=== PATIENT | female | born 1960 | race Caucasian/White ===

== ENCOUNTER 2022-09-01 14:42 | Outpatient (REF) | payer MEDICARE, MEDICAID, SELFPAY ==
[2022-09-04 14:03] LABS: HPV mRNA E6/E7 rflx Not Detected (Not Detected)
== END 2022-09-01 14:43 | disposition home or self-care (01) ==
LOC: HO.LNP 14:42
PROVIDERS: Visit Provider Obstetrics & Gynecology
DX: Z01.419 Encounter for gynecological examination (general) (routine) without abnormal findings (principal); Z11.51 Encounter for screening for human papillomavirus (HPV); R10.9 Unspecified abdominal pain; Z71.89 Other specified counseling
CPT/HCPCS: 87624; 88142; 99212

== ENCOUNTER 2022-09-05 21:34 | Emergency (ER) | payer MEDICARE, MEDICAID, SELFPAY ==
--- NOTE | ~2022-09-05 | XR_ITS ---
EXAMINATION: XR FINGER, LEFT CLINICAL INFORMATION: Thumb pain, question fracture COMPARISON: None TECHNIQUE: Three views of the left thumb. FINDINGS: Osseous alignment is anatomic. No acute fracture is seen. There is spurring at the interphalangeal joint of the thumb. No significant focal soft tissue abnormality identified. XR/XR finger LT min 2V IMPRESSION: No evidence of fracture.
--- NOTE | ~2022-09-05 | XR_ITS ---
EXAMINATION: XR FINGER, RIGHT CLINICAL INFORMATION: Thumb pain, question fracture COMPARISON: None TECHNIQUE: Three views of the right thumb. FINDINGS: Osseous alignment is anatomic. No acute fracture is seen. There is degenerative change at the interphalangeal joint of the thumb. Minimal spurring is also noted at the MCP joint of the thumb. No significant focal soft tissue abnormality identified. XR/XR finger RT min 2V IMPRESSION: No fracture identified.
[2022-09-05 21:37] VITALS: BP 158/74; PULSE 88; RESP 20; TEMP 36.9; O2SAT 96; BMI 30.9
[2022-09-05 23:45] VITALS: BP 116/68; PULSE 96; RESP 16; TEMP 36.4; O2SAT 97
--- NOTE | 2022-09-06 01:07 | ED_ITS ---
HPI - Wound/Laceration General Chief Complaint: Wound/Laceration Stated Complaint: Thumb lac Time Seen by Provider: 09/06/22 00:50 Source: patient Mode of arrival: ambulatory Limitations: no limitations History of Present Illness HPI narrative: 62-year-old female presents with laceration to her left thumb. Patient states that she was reaching up in her cabinet, and a glass fell and shattered, cutting her thumb and thenar process. Patient states that it is painful to move. She also reports right thumb pain from an injury 4 days ago. She denies chest pain or pressure, palpitations, shortness of breath, intoxication, abdominal pain abdominal distention, dysuria hematuria, and loss of sensation. Onset (ago): hour(s) (Within the hour of arrival) Extremity Location: left: hand (thumb) Place: home Patient tetanus UTD: No Context: accidental Associated symptoms: pain and suspect foreign body present Treatments prior to arrival: bandage Related Data Home Medications Medication Instructions Recorded Confirmed alprazolam 1 mg tablet 1 mg PO TID PRN anxiety 09/01/22 escitalopram oxalate 20 mg tablet 20 mg PO DAILY 09/01/22 estradiol 0.5 mg tablet 0.5 mg PO DAILY 09/01/22 fentanyl 75 mcg/hr transdermal 0 patch topical 09/01/22 patch levothyroxine 150 mcg tablet 150 mcg PO DAILY 09/01/22 oxycodone 30 mg tablet 0 mg PO 09/01/22 Allergies Allergy/AdvReac Type Severity Reaction Status Date / Time minocycline Allergy Unknown Unknown Verified 09/01/22 14:09 Sulfa (Sulfonamide Allergy Unknown RASH Verified 09/01/22 14:09 Antibiotics) [SULFA (SULFONAMIDE ANTIBIOTICS)] tetracycline [TETRACYCLINE] Allergy Unknown PANCREATITI Verified 09/01/22 14:09 S Review of Systems Review of Systems: Constitutional: No Fever, No Chills ENT/Mouth: No Ear Pain, No Hoarseness, No sore throat Eyes: No Eye Pain, No Swelling, No Redness, No Foreign Body Cardiovascular: No Chest Pain, No SOB Respiratory: No Cough, No Dyspnea Gastrointestinal: No Nausea, No Vomiting, No Diarrhea, No abdominal Pain Genitourinary: No Dysuria, No Hematuria Musculoskeletal: positive bilateral thumb pain, No Myalgias, No Joint Swelling Skin: palmar aspect thumb laceration, No Skin lacerations, No rash Neuro: No Weakness, No Numbness, No Paresthesias, No Loss of Consciousness, No Dizziness, No Headache Psych: No Anxiety/Panic, No Depression Heme/Lymph: no easy bruising, no Lymphadenopathy Endocrine: No Polyuria, No Polydipsia Yes all other systems are reviewed and are negative [facility] Past Medical History Attestation statement: The following information was validated with the patient. Source: old records reviewed Medical History Hypothyroidism Well woman exam Surgical History H/O foot surgery H/O wrist surgery History of back surgery Hx of section Social History Social History Patient Tobacco Use Status: Current someday Tobacco user Advance Directives: No Physical Exam Vital Signs: Vital Signs: Last Vital Signs Temp 97.5 F 09/05/22 23:45 Pulse 96 09/05/22 23:45 Resp 16 09/05/22 23:45 BP 116/68 09/05/22 23:45 Pulse Ox 97 09/05/22 23:45 O2 Del Method 09/05/22 23:45 BMI result Body Mass Index 30.9 Appearance: Alert. Oriented X3. No acute distress. Eyes: Pupils equal, round and reactive to light. ENT: Pharynx normal. Neck: Normal inspection. Neck supple. CVS: Normal heart rate and rhythm. Pulses normal. Respiratory: No respiratory distress. Breath sounds normal. Abdomen: Soft and nontender. Skin: 1 cm laceration warm proximal phalanx of the left thumb. Flap laceration just below the MCP joint on the thenar process. Normal skin color. Normal skin turgor. Extremities: No lower extremity edema. Full range of motion to all digits. Brisk capillary refill. Neuro: No motor deficit. No sensory deficit. Cranial nerves 2-12 intact. Course Course Course Narrative: 62-year-old female presents with laceration across the proximal phalanx of the palmar aspect of the left thumb, with a flap laceration just below the MCP joint on the thenar process. Unknown when her last Tdap was updated, will do that today. Patient also complains of right thumb pain from an injury 4 days ago. Will order x-rays for both thumbs. Prepped and draped in sterile fashion. Irrigated with copious amounts of saline. Patient tolerated procedure well. Please refer to procedure note for full details. MDM - Wound/Laceration Differential Diagnosis Differential diagnosis: Likely laceration Medical Records Attestation: I reviewed the patient's medical records. Imaging Data Bilateral thumb x-rays: Attestation: I personally reviewed and interpreted this imaging study as follows: Radiologist's impression: EXAMINATION: XR FINGER, LEFT CLINICAL INFORMATION: Thumb pain, question fracture? COMPARISON: None? TECHNIQUE: Three views of the left thumb. FINDINGS: Osseous alignment is anatomic. No acute fracture is seen. There is spurring at the interphalangeal joint of the thumb. No significant focal soft tissue abnormality identified.? XR/XR finger LT min 2V IMPRESSION: No evidence of fracture. ? EXAMINATION: XR FINGER, RIGHT CLINICAL INFORMATION: Thumb pain, question fracture? COMPARISON: None? TECHNIQUE: Three views of the right thumb. FINDINGS: Osseous alignment is anatomic. No acute fracture is seen. There is degenerative change at the interphalangeal joint of the thumb. Minimal spurring is also noted at the MCP joint of the thumb. No significant focal soft tissue abnormality identified.? XR/XR finger RT min 2V IMPRESSION: No fracture identified. Procedures Laceration Laceration 1: Site: hand Side (If applicable): left (Left thumb) Size (cm): 1 Description: linear Depth: simple, single layer Local Anesthetic: lidocaine 1% Amount of anesthesia used (mL): 3 Pre-repair: wound explored, irrigated extensively and deep structures intact Skin layer closed with: nylon Size (cm): 4-0 Number of sutures: 5 Technique: simple, interrupted Laceration 2: Site: hand Side (If applicable): left Size (cm): 0.2 Description: flap Depth: simple, single layer Local Anesthetic: lidocaine 1% Amount of anesthesia used (mL): 1 Pre-repair: wound explored, irrigated extensively and deep structures intact Skin layer closed with: nylon Size (cm): 4-0 Number of sutures: 1 Technique: simple, interrupted Discharge Plan Discharge Clinical Impression: Laceration Patient Disposition: Home, Self-Care Instructions: Care For Your Stitches (ED), Finger Laceration (ED) Additional Instructions: You were evaluated for some laceration. We placed 5 stitches to the thumb, and 1 stitch to the thenar process just below the MCP joint. Please return in 10-14 days to have sutures removed. We updated your Tdap vaccine today. Your x-rays are negative for acute findings requiring emergent intervention. You may consider following up with her primary care physician for further follow-up for bilateral thumb pain. Thank you for choosing this emergency department for evaluation. Please follow-up with primary care physician as needed. Return to the emergency department for any new, concerning, or worsening symptoms. Prescriptions: No Action levothyroxine 150 mcg tablet 150 mcg PO DAILY alprazolam 1 mg tablet 1 mg PO TID PRN (Reason: anxiety) oxycodone 30 mg tablet 0 mg PO fentanyl 75 mcg/hr patch 72 hour 0 patch topical escitalopram oxalate 20 mg tablet 20 mg PO DAILY estradiol 0.5 mg tablet 0.5 mg PO DAILY
[2022-09-06] MEDS: Diphth,Pertus(ACell),Tet Adult 0.5 ML SYRINGE IM (01:37)
[2022-09-06] MEDS: Lidocaine HCl 2 % MPF 5 ML VIAL INFILTRATI (02:17)
== END 2022-09-06 02:47 | disposition home or self-care (01) ==
PROVIDERS: Emergency Provider Emergency Medicine Emergency Medical Services
DX: S61.012A Laceration without foreign body of left thumb without damage to nail, initial encounter (principal); S61.412A Laceration without foreign body of left hand, initial encounter; S60.512A Abrasion of left hand, initial encounter; M79.642 Pain in left hand; W25.XXXA Contact with sharp glass, initial encounter; Y93.9 Activity, unspecified; Y92.9 Unspecified place or not applicable; Y99.9 Unspecified external cause status
CPT/HCPCS: 12042; 73140; 90471; 90715; 99282; 99284

== ENCOUNTER → 2022-09-23 09:25 | Outpatient (BNVA) | payer MEDICARE, MEDICAID, SELFPAY | PROVIDERS: Visit Provider Physician Assistant | DX: S66.812A Strain of other specified muscles, fascia and tendons at wrist and hand level, left hand, initial encounter (principal); X50.1XXA Overexertion from prolonged static or awkward postures, initial encounter; Y93.9 Activity, unspecified; Y92.9 Unspecified place or not applicable; Y99.8 Other external cause status | CPT/HCPCS: 99202 ==

== ENCOUNTER 2022-09-26 09:40 | Day surgery (SDC) | payer MEDICARE, MEDICAID, SELFPAY ==
[2022-09-26] VITALS (23 sets, daily range): BP systolic 95–110; BP diastolic 50–69; PULSE 56–75; RESP 14–16; TEMP 36.1–36.6; O2SAT 88–97; BMI 30.9
--- NOTE | 2022-09-26 12:24 | HO.ANESPROP2 ---
HPI - Anesthesia Eval Consult details Narrative: 62 F for left thumb flexor pollicis longus tendon repair PMFSH Active Problems Active Problems: All Active Problems (Updated 09/23/22 @ 11:24 by Chapito Shields PA-C) Rupture of flexor tendon of left hand (Acute) Counseling for hormone replacement therapy (Acute) Abdominal pain (Acute) Well woman exam (Acute) Past Medical History Medical History Hypothyroidism Well woman exam Functional capacity: independent ambulation Family History Family history of problems with anesthesia: No Surgical History Surgical History H/O foot surgery H/O wrist surgery History of back surgery Hx of section History of Problems with Anesthesia: No Social History Social History (Updated 09/23/22 @ 09:34 by JOVANY Valdez) Patient Tobacco Use Status: Never used Tobacco Use of substances other than those prescribed or required for medical reasons: No Are you DNR?: No Advance Directives: No Advance Directives Information Provided: Yes Current occupational status: disabled Current occupation: rt hand Meds Allergies Allergy/AdvReac Type Severity Reaction Status Date / Time minocycline Allergy Unknown Unknown Verified 09/23/22 09:32 Sulfa (Sulfonamide Allergy Unknown RASH Verified 09/23/22 09:32 Antibiotics) [SULFA (SULFONAMIDE ANTIBIOTICS)] tetracycline [TETRACYCLINE] Allergy Unknown PANCREATITI Verified 09/23/22 09:32 S Home Medications Medication Instructions Recorded Confirmed Last Taken Type alprazolam 1 mg tablet 1 mg PO TID PRN anxiety 09/01/22 09/26/22 09/26/22 History escitalopram oxalate 20 mg tablet 20 mg PO DAILY 09/01/22 09/26/22 Unknown History estradiol 0.5 mg tablet 0.5 mg PO DAILY 09/01/22 09/26/22 Unknown History fentanyl 75 mcg/hr transdermal 75 mcg topical 09/01/22 Unknown History patch levothyroxine 150 mcg tablet 150 mcg PO DAILY 09/01/22 09/26/22 Unknown History oxycodone 30 mg tablet 60 mg PO Q6H 09/01/22 09/26/22 Unknown History sumatriptan succinate 100 mg tablet 100 mg PO NEEDED headache 09/23/22 09/26/22 Unknown History Exam Exam Date and Time: September 26, 2022 1224 Height,Weight and Vital Signs: Height 5 ft 4 in Weight 81.647 kg Last Vital Signs Temp 97.9 F 09/26/22 10:21 Pulse 56 09/26/22 10:21 Resp 16 09/26/22 10:21 BP 110/69 09/26/22 10:21 Pulse Ox 93 09/26/22 10:21 O2 Del Method 09/26/22 10:21 Airway Mallampati Class: IV TM Dist: >3cm Neck ROM: Full Loose/Missing/Broken Teeth: Yes (Chipped teeth ) Heart: S1,S2 Lungs: b/l breath sounds Assessment and Plan Assessment Anesthesia Assessment: Anesthesia Plan Discussed and Chart Reviewed Final Anesthetic Review Family History of Problems with Anesthesia: No History of Problems with Anesthesia: No NPO: Yes ASA Class: III Final Preanesthetic Review: Meds/Allgs Chart Reviewed, Consent Obtained/Reviewed and Anes Risks/Benef Reviewed Patient Risk: Intermediate Procedure Risk: Intermediate Anesthetic Plan Anesthetic Plan: GA Disposition: Standard PACU
--- NOTE | 2022-09-26 12:54 | MHC.SHP ---
Pre-Procedural Eval Section A Date of Service: 09/26/22 The patient is an INPATIENT: No Changes since office visit: No Cold of Flu in the past 2 weeks, No New Medical Problems, No Changes in Medication and No Patient answered all questions The History & Physical has been completed within 30 days and I have reviewed it.: Yes Section B Chief Complaint: FPL tendon rupture Allergies: Allergies Allergy/AdvReac Type Severity Reaction Status Date / Time minocycline Allergy Unknown Unknown Verified 09/23/22 09:32 Sulfa (Sulfonamide Allergy Unknown RASH Verified 09/23/22 09:32 Antibiotics) [SULFA (SULFONAMIDE ANTIBIOTICS)] tetracycline [TETRACYCLINE] Allergy Unknown PANCREATITI Verified 09/23/22 09:32 S Plan assessment and plan: 1. Left thumb FPL tendon laceration about 2-3 weeks post injury 2. Left thumb radial digital nerve laceration ulnar digital nerves sensation intact I have reviewed the history and physical and performed a pertinent physical examination on my patient. No changes have occurred unless specified.
--- NOTE | 2022-09-26 16:06 | W.PM.OPN ---
Operative Note Operative Note Date of Service: 09/26/22 Narrative: Operative Note Narrative: Preop diagnosis: left thumb proximal phalanx level FPL tendon laceration, 20 days post injury Postop diagnosis: Same Procedure: 1. left thumb flexor pollicis longus tendon repair 2. Left carpal tunnel release Surgeon: Shiloh Maza MD Anesthesia: General Anesthesia Findings: left thumb FPL tendon retrieved from carpal tunnel and advanced back into the FPL tendon sheath to the thumb. Radial digital nerve noted with partial injury and early evidence of healing/neuroma Implants: none Tourniquet time: 62 minutes EBL: 5.0 ml Specimen: none Drains: None Complications: None Disposition: Brought to the recovery room in stable condition Plan: Follow-up in 10-14 days for wound check, suture removal and placement in a short-arm thumb spica cast Until 5-6 weeks postop. Start OT hand therapy at 6 weeks postop No narcotics being given postop as patient is on 30 mg oxycodone tablet q.6 hours plus a fentanyl patch, and came in this morning difficult to arouse with dilated pupils. Pain will be managed by the person managing her pain medication. Indications: The patient is a 62 year old woman with a left thumb FPL tendon laceration and presumed laceration of the radial digital nerve to the thumb now 20 days post injury. . The risks and benefits of operative treatment, including but not limited to risk of damage to blood vessels, nerves, tendons, infection, recurrence, persistent pain or numbness, incomplete resolution of preoperative symptoms, or need for further surgery were discussed with the patient and they wished to proceed with surgery. Procedure: Once consent was obtained patient was brought back to the operating suite and placed in the operating table in a supine position. . Perioperative antibiotics and anesthesia was administered by the anesthesia team. A tourniquet was applied to the proximal aspect of the Left upper extremity and the limb was prepped and draped in a standard surgical fashion. The limb was elevated exsanguinated with Esmarch bandage and the tourniquet inflated to 250 mm of mercury for a total tourniquet time of 62 minutes. I made a Angelo incision over the volar aspect of the patient's left thumb including the rather transverse and healed laceration over the volar aspect of the proximal phalanx. Incision was made through the skin to the subcutaneous tissues using a 15. Blade. I then dissected down to the level of the flexor tendon sheath extending from the A1 tervor to just past the IP joint. The radial digital nerve was visualized in the wound with what appears to be a partial injury with healing and early neuroma formation. This was protected during the case. I made a longitudinal incision in the A1 trevor using a 15. Blade. The FPL tendon was not found in the flexor tendon sheath. I attempted carefully to grasp and withdraw the tendon from within the flexor tendon sheath. Being unable to do so I then elected to proceed with a carpal tunnel release. I made a 2.5 cm longitudinal incision directly over the patient's left carpal tunnel. Incision was made through the skin the subcutaneous tissues using a 15. Blade. I then extended the incision sharply through the palmaris fascia down to the level of the transverse carpal ligament. The transverse carpal ligament was then opened carefully 1st using a 15. Blade then using tenotomy scissors under direct visualization. Within the carpal tunnel I carefully retracted the median nerve ulnarly and was then able to appreciate the injured FPL tendon in the radial aspect of the carpal tunnel. This was dense withdrawn into the wound. I then placed a nylon suture on the end of the tendon and was able to draw it up through the flexor tendon sheath to the A1 trevor area. I was then able to draw the tendon up through the flexor tendon sheath to just past the oblique trevor. The distal and of the FPL tendon was noted at about the level of the IP joint. I then performed a 4 core primary repair of the FPL tendon using 3-0 Ethibond suture. At this point the tourniquet was deflated and hemostasis obtained with a brief period of local pressure and bipolar electrocautery. The wounds were copiously irrigated with normal saline. The skin edges were reapproximated with 5-0 nylon suture. The wound was infiltrated with some have% plain ropivacaine for postop pain control and a sterile dressing and dorsal blocking thumb spica splint were applied. The patient appears to have tolerated the procedure well and with no complications. All digits were well vascularized conclusion of the case.
--- NOTE | 2022-09-26 19:08 | PC.NURSE ---
HOSPITALIST DR. MAURER CALLED TO OBTAIN PATIENT UPDATE REGARDING RESPIRATORY STATUS. MADE AWARE OF HOME NARCOTIC MEDICAITONS TAKEN PREOPERATIVELY PRIOR TO ARRIVAL. PATIENT REMAINS ON SUPPLEMENTAL 02. C02 48-50. OTHERWISE VSS
--- NOTE | 2022-09-26 19:30 | P.HPHOSP_ITS ---
History of Present Illness Date of Service: 09/27/22 Chief Complaint: hypoxic This 62-year-old female with past medical history of chronic back pain, who is being seen in the hospital for elective outpatient repair of rupture of flexor tendon of left hand. Postop patient was noted to be hypoxic, and very lethargic and difficult to arouse. According to history prior to the surgery patient had taking 60 mg of her chronic oxycodone pain medication as well as Xanax. Or saw the patient few hours post surgery, she is awake, alert, satting 97% on 3 L of oxygen. According to the patient she sleeps very late in the morning hours and wakes up at 11 therefore she usually takes her chronic pain medication late in the morning, and she was told that she can take her regular medications prior to the surgery therefore she took her usual 60 mg of oxycodone and 1 pill of Xanax. Patient reports that she has been on the same dose of oxycodone since late . She reports no history of overdose, reports no new changes to her medications. She takes 60 mg of oxycodone q.4 hours. In regards to the tender rupture, she reports that she was reaching for a glass in the cabinet, where to glasses were stacked on top of each other, the bottom 1 fell, when she tried to reach for it, is shattered in her hand, rupturing her tendon in her left thumb. Currently the pain is 10/10, not control. Currently patient denies any chest pain, no shortness of breath, pain, no palpitations, nausea or vomiting, no diarrhea constipation, no urinary symptoms and no lower extremity edema. No headache or change in vision. No numbness weakness or tingling. Per recorded vitals, patient was found 85-90% on room air whenever oxygen is turned off Review of Systems Review of Systems: Yes all other systems are reviewed and are negative [facility] Medical History (Updated 09/27/22 @ 06:00 by Vero Almaraz MD) History of chronic pain Hypothyroidism Rupture of flexor tendon of left hand Well woman exam Functional capacity: independent ambulation Family History Other No family history of coronary artery disease Surgical History H/O foot surgery H/O wrist surgery History of back surgery Hx of section Social History Household Members: Friend(s) Housing: House Patient Tobacco Use Status: Never used Tobacco Use of substances other than those prescribed or required for medical reasons: No Currently Displaying Signs/Symptoms of Drug Intoxication Withdrawal: No Have you been hit, kicked, punched, or otherwise hurt by someone within the past year? If so, by whom?: No Do you feel safe in your current relationship?: Yes Is there a partner from a previous relationship who is making you feel unsafe now?: No Are you made to feel afraid or neglected: No Are you DNR?: No Advance Directives: No Advance Directives Information Provided: Yes Do you have thoughts of harming others: None Do you have a plan to hurt others: No Plan Recently lost weight without trying: No Nutrition Risks: No Nutritional Risk Patient : No : No Poor oral hygiene: No Current occupational status: disabled Current occupation: rt hand Meds Allergies Allergy/AdvReac Type Severity Reaction Status Date / Time minocycline Allergy Unknown Unknown Verified 09/23/22 09:32 Sulfa (Sulfonamide Allergy Unknown RASH Verified 09/23/22 09:32 Antibiotics) [SULFA (SULFONAMIDE ANTIBIOTICS)] tetracycline [TETRACYCLINE] Allergy Unknown PANCREATITI Verified 09/23/22 09:32 S Active Medications: Current Medications Acetaminophen (Acetaminophen 325 Mg Tablet) 650 mg PO ONCE PRN PRN Reason: Pain, Mild (Pain Scale 1-3) Acetaminophen (Acetaminophen 325 Mg Tablet) 650 mg PO Q6H PRN PRN Reason: Pain, Mild (Pain Scale 1-3) Enoxaparin Sodium (Enoxaparin Sodium 40 Mg/0.4 Ml Syringe) 40 mg SUBCUT Q24H LISSA Fentanyl (Fentanyl Citrate/Pf 100 Mcg/2 Ml Vial) 25 mcg IVPUSH Q5M PRN; Protocol PRN Reason: Pain, Moderate (Pain Scale 4-6 Promethazine HCl 6.25 mg/ (Sodium Chloride) 50.25 mls @ 201 mls/hr IV ONCE PRN PRN Reason: Nausea and Vomiting Ondansetron HCl (Ondansetron Hcl 4 Mg/2 Ml Vial) 4 mg IVPUSH Q8H PRN PRN Reason: Nausea and Vomiting Sodium Chloride (0.9 % Sodium Chloride Flush 3 Ml Syringe) [facility] Medications Medication Instructions Recorded Confirmed Last Taken Type alprazolam 1 mg tablet 1 mg PO TID PRN anxiety 09/01/22 09/26/22 09/26/22 History escitalopram oxalate 20 mg tablet 20 mg PO DAILY 09/01/22 09/26/22 Unknown History estradiol 0.5 mg tablet 0.5 mg PO DAILY 09/01/22 09/26/22 Unknown History fentanyl 75 mcg/hr transdermal 75 mcg topical 09/01/22 Unknown History patch levothyroxine 150 mcg tablet 150 mcg PO DAILY 09/01/22 09/26/22 Unknown History oxycodone 30 mg tablet 60 mg PO Q6H 09/01/22 09/26/22 Unknown History sumatriptan succinate 100 mg tablet 100 mg PO NEEDED headache 09/23/22 09/26/22 Unknown History Physical Exam Vital Signs and Narrative: Vital Signs: Last Vital Signs Temp 97.0 F 09/26/22 18:00 Pulse 75 09/26/22 19:25 Resp 16 09/26/22 19:25 BP 102/50 L 09/26/22 19:25 Pulse Ox 93 09/26/22 19:25 O2 Del Method 09/26/22 19:25 O2 Flow Rate 2.5 09/26/22 19:25 BMI result Body Mass Index 30.9 Const: General: cooperative and no acute distress Orientation/co nsciousness: patient oriented x3 Eyes: General: appearance normal, both eyes and all related structures Resp: Effort & Inspection: normal respiratory effort Auscultation: clear to auscultation bilaterally Cardio: Rate: regular rate Rhythm: regular rhythm GI: Palpation (GI): Soft to palpation Auscultation: normal bowel sounds Skin: General skin exam: no rashes or lesions noted Neuro: General: patient oriented x3 Cognition (Neuro): normal cognition Extrem: Other: Right thumb in dressing, General: Yes normal to inspection and Yes no pedal edema Assessment and Plan (1) S/P tendon repair: Status: Acute (2) Acute respiratory failure with hypoxia: Status: Acute (3) Accidental overdose: Status: Acute Plan 88-year-old female with past medical history of chronic pain whole takes chronic pain medication presents to the hospital for an elective outpatient flexor tendon repair of her left hand, found to be hypoxic post surgery # acute hypoxic respiratory failure - likely due to excessive anesthesia given her use of chronic oxycodone as well as and seizure use during surgery - patient now back to baseline - continue to monitor oxygen, titrate oxygen off as tolerated # accidental overdose -likely in the setting of using a 60 mg of oxycodone which is her baseline medication plus anesthesia general surgery - patient now back to her baseline - no recent changes to her chronic pain medication - at this time will hold her home oxygen - monitor respiratory status # status post tendon repair of left hand - management per surgery - will start her on morphine p.r.n. for pain control as patient is stable, respiratory rate is stable, with poorly controlled pain of left hand - can switch back to her home oxycodone which is her chronic medication with no new changes # hypothyroidism - continue levothyroxine DVT prophylaxis: Early ambulation Quality Stroke Does the patient have a stroke diagnosis?: No VTE Prior VTE?: No VTE Risk Level:: Medical - low VTE Device Contraindication: Treatment Not Indicated VTE Drug Contraindication: N/A - Med Ordered
[2022-09-26] MEDS: Acetaminophen 325 MG TABLET 650 MG PO (19:36)
[2022-09-26 20:09] LABS: COVID-19 Test Negative (Negative); IDNOW Serial# 55D5AD1C
[2022-09-26] MEDS: Enoxaparin Sodium 40 MG/0.4 ML SYRINGE SUBCUT (21:48)
[2022-09-27] VITALS: BP 95/59; PULSE 73; RESP 16; TEMP 36.6; O2SAT 97
[2022-09-27] MEDS: Morphine Sulfate 4 MG/ML CARTRIDGE IVPUSH ×3 (00:55→10:31)
[2022-09-27] MEDS: 0.9 % Sodium Chloride Flush 3 ML SYRINGE IVFLUSH ×2 (00:55→09:01)
[2022-09-27 03:38] VITALS: BP 111/59; PULSE 66; RESP 18; TEMP 36.7; O2SAT 97
[2022-09-27 05:57] LABS: MANUAL DIFF FLAG NO
[2022-09-27 06:01] LABS: Basophils Percent Auto 0.1 % (0-2); Hematocrit 36.6 % (37.0-47.0); Hemoglobin 12.1 g/dl (12.0-16.0); Imm Gran Abs Auto 0.08 X10*3/uL (0.00-0.03); Imm Gran Pct Auto 0.6 % (0.0-0.4); Lymphocytes Absolute Auto 1.3 X10*3/uL (1.2-4.9); Lymphocytes Percent Auto 9.6 % (20-40); Mean Corpuscular HGB Conc 33.1 g/dl (31.0-35.0); Mean Corpuscular Hemoglobin 30.1 pg (27.0-33.0); Mean Platelet Volume 10.6 fL (9.4-12.3); Monocytes Absolute Auto 0.4 X10*3/uL (0.1-1.2); Monocytes Percent Auto 2.9 % (2-11); Neutrophils Absolute Auto 11.8 x10*3/uL (2.0-8.3); Neutrophils Percent Auto 86.8 % (45-73); Platelet Count 243 X10*3/uL (160-400); Red Blood Count 4.02 X10*6/uL (4.20-5.50); Red Cell Distribution Width 12.5 % (11.0-16.0); White Blood Count 13.7 X10*3/uL (4.8-10.8)
[2022-09-27 06:26] LABS: Anion Gap 14 (12-20); Blood Urea Nitrogen 12 mg/dL (9-16); Calcium 9.1 mg/dL (8.4-10.2); Carbon Dioxide 27 mmol/L (22-29); Chloride 103 mmol/L (96-108); Creatinine Clr Calc Pharmacy 75.4; Estimated Glomerular Filt Rate > 60; Glucose Random 178 mg/dL (60-115); Potassium 4.4 mmol/L (3.3-5.1); Sodium 140 mmol/L (135-145)
[2022-09-27 07:56] VITALS: BP 122/53; PULSE 67; RESP 20; TEMP 36.7; O2SAT 97
--- NOTE | 2022-09-27 08:15 | PM.PNORT ---
Subjective Subjective Date of Service: 09/27/22 Interval history: POD 1 s/p Procedure:? ? 1. left thumb flexor pollicis longus tendon repair ? 2. Left carpal tunnel release Tolerating pain well elevating hand Physical Exam Vital Signs: Vital Signs: Last Vital Signs Temp 98.1 F 09/27/22 07:56 Pulse 67 09/27/22 07:56 Resp 20 09/27/22 07:56 BP 122/53 L 09/27/22 07:56 Pulse Ox 97 09/27/22 07:56 O2 Del Method 09/27/22 07:56 O2 Flow Rate 2 09/27/22 03:38 BMI result Body Mass Index 30.9 Const: General: cooperative, healthy appearing and no acute distress Resp: Effort & Inspection: normal respiratory effort and able to speak in complete sentences Cardio: Rate: regular rate Peripheral pulses: Peripheral pulses 2+ throughout GI: Palpation (GI): Soft to palpation Skin: General skin exam: no rashes or lesions noted Extrem: Other: bandage clean ,dry and intact. sensation and pulses present Procedures Date of Service Date of Service: 09/27/22 Progress Note: A&P Assessment and plan (1) S/P tendon repair: Status: Acute (2) Carpal tunnel syndrome on left: Status: Acute Plan keep splint clean dry and intact no lifting with the left hand elevate throughout the day follow up with orthopedics 10/11/22 15:30 [facility] [place] Orth[facility] Surgeons Shiloh Maza MD Time Spent With Patient Time: Total time spent is greater than 50% in coordination of care (as documented) at patient's floor/unit and/or counseling patient: Quality Stroke Does the patient have a stroke diagnosis?: No VTE Prior VTE?: No VTE Risk Level:: Medical - low VTE Device Contraindication: Treatment Not Indicated VTE Drug Contraindication: N/A - Med Ordered
[2022-09-27 09:01] VITALS: O2SAT 96
--- NOTE | 2022-09-27 10:40 | HO.POSTANES ---
Post Anesthesia Evaluation Post Anesthesia Evaluation Vital Signs: Vital Signs Temp Pulse Resp BP Pulse Ox O2 Del Method O2 Flow Rate 09/27/22 09:01 96 Room Air 09/27/22 07:56 98.1 F 67 20 122/53 L 97 Room Air 09/27/22 03:38 98.0 F 66 18 111/59 L 97 Nasal Cannula 2 09/27/22 00:00 97.8 F 73 16 95/59 L 97 Nasal Cannula 2 Anesthesia: Nerve Block and General Mental Status: Awake Pain Control: Satisfactory Nausea/Vomiting: None Hydration: Adequate Anesthesia-Related Issues: No Anes. Related Issues
[2022-09-27 11:14] VITALS: BP 124/56; PULSE 68; RESP 20; TEMP 36.4; O2SAT 98
--- NOTE | 2022-09-27 12:51 | P.DS_ITS ---
DS: Providers Provider Date of Service: 09/27/22 Primary care physician: Unknown Physician Consults: 09/27/22 00:05 Consult to Hospitalist Routine Consulting Provider: Hospitalist Reason For Exam: pain DS: Diagnosis Discharge Diagnosis (1) S/P tendon repair: Status: Acute (2) Carpal tunnel syndrome on left: Status: Acute DS: Summary Hospital Course Hospital Course: History of Present Illness Date of Service: 09/27/22 Chief Complaint: hypoxic This 62-year-old female with past medical history of chronic back pain, who is being seen in the hospital for elective outpatient repair of rupture of flexor tendon of left hand.? Postop patient was noted to be hypoxic, and very lethargic and difficult to arouse.? According to history prior to the surgery patient had taking 60 mg of her chronic oxycodone pain medication as well as Xanax.? Or saw the patient few hours post surgery, she is awake, alert, satting 97% on 3 L of oxygen.? According to the patient she sleeps very late in the morning hours and wakes up at 11 therefore she usually takes her chronic pain medication late in the morning, and she was told that she can take her regular medications prior to the surgery therefore she took her usual 60 mg of oxycodone and 1 pill of Xanax.? Patient reports that she has been on the same dose of oxycodone since late .? She reports no history of overdose, reports no new changes to her medications.? She takes 60 mg of oxycodone q.4 hours.? In regards to the tender rupture, she reports that she was reaching for a glass in the cabinet, where to glasses were stacked on top of each other, the bottom 1 fell, when she tried to reach for it, is shattered in her hand, rupturing her tendon in her left thumb.? Currently the pain is 10/10, not control. Currently patient denies any chest pain, no shortness of breath, pain, no palpitations, nausea or vomiting, no diarrhea constipation, no urinary symptoms and no lower extremity edema.? No headache or change in vision.? No numbness weakness or tingling.? Per recorded vitals, patient was found 85-90% on room air whenever oxygen is turned off Hospital course: Patient with oxygen demand back to baseline prior to discharge. Accidental overdose was likely in the setting of 60 mg home dose oxycodone plus anesthesia general surgery. Mentation and hypoxemia improved throughout hospital course. Status at Discharge Functional status at discharge: independent ambulation Overall status at discharge: patient is back to baseline Time Spent with Patient Time attestation: Total time spent providing and/or coordinating discharge services: Discharge coordination time: Less than 30 minutes Quality: Safe Use of Opioids Does Pt have an Active Cancer Diagnosis on the Problem List?: No Quality: Stroke Does the patient have a stroke diagnosis?: No Physical Exam Vital Signs: Vital Signs: Last Vital Signs Temp 97.5 F 09/27/22 11:14 Pulse 68 09/27/22 11:14 Resp 20 09/27/22 11:14 BP 124/56 L 09/27/22 11:14 Pulse Ox 98 09/27/22 11:14 O2 Del Method 09/27/22 11:14 O2 Flow Rate 2 09/27/22 03:38 BMI result Body Mass Index 30.9 Const:?? General: cooperati ve and no acute di stress? Orientatio n/consciousness: p atient oriented x3 Eyes:?? General: appearanc e normal, both eye s and all related structures Resp:?? Effort & Inspectio n: normal respirat ory effort? Auscul tation: clear to a uscultation bilate rally Cardio:?? Rate: regular rate ? Rhythm: regular rhythm GI:?? Palpation (GI): So ft to palpation? A uscultation: thoams l bowel sounds Skin:?? General skin exam: no rashes or lesi ons noted Neuro:?? General: patient o riented x3? Cognit ion (Neuro): thomas l cognition Extrem:?? Other: Right thumb in dressing, ? Ge neral: Yes normal to inspection and Yes no pedal edema DS: Data Data Completed and Pending Labs on day of discharge: Laboratory Results - last 24 hr 09/26/22 09/27/22 09/27/22 19:46 05:18 05:18 WBC 13.7 H RBC 4.02 L Hgb 12.1 Hct 36.6 L MCV 91.0 MCH 30.1 MCHC 33.1 RDW 12.5 Plt Count 243 MPV 10.6 Immature Gran % (Auto) 0.6 H Neut % (Auto) 86.8 H Lymph % (Auto) 9.6 L [place] % (Auto) 2.9 Eos % (Auto) 0.0 Baso % (Auto) 0.1 Lymph # (Auto) 1.3 [place] # (Auto) 0.4 Eos # (Auto) 0.0 Baso # (Auto) 0.0 Abs Immat Gran (auto) 0.08 H Absolute Neuts (auto) 11.8 H Absolute Nucleated RBC 0.000 Nucleated RBC % (auto) 0.0 Sodium 140 Potassium 4.4 Chloride 103 Carbon Dioxide 27 Anion Gap 14 BUN 12 Creatinine 0.82 Estim Creat Clear Calc 75.4 Estimated GFR > 60 Random Glucose 178 H Calcium 9.1 COVID-19 ([facility]ILLIAM) Negative COVID-19 Clin Com See Note Discharge Plan Discharge Patient Disposition: Home, Self-Care Referrals: Shiloh Maza MD [Physician] - 2 Weeks (10/11/22 2:30 [facility] [place] Orth[facility] Surgeons Shiloh Maza MD) Physician,Unknown J [Primary Care Provider] - 1 Week Discharge Medications: No Action levothyroxine 150 mcg tablet 150 mcg PO DAILY alprazolam 1 mg tablet 1 mg PO TID PRN (Reason: anxiety) Rx Instructions: TOOK 2MG THIS AM oxycodone 30 mg tablet 60 mg PO Q6H fentanyl 75 mcg/hr patch 72 hour 75 mcg topical Rx Instructions: every 48 hours every two days escitalopram oxalate 20 mg tablet 20 mg PO DAILY estradiol 0.5 mg tablet 0.5 mg PO DAILY sumatriptan succinate 100 mg tablet 100 mg PO NEEDED Discharge Orders: Discharge Order (Routine); Ordered 09/26/22 Ordered By: Shiloh Maza Activity Restrictions/Additional Instructions: * Keep splint clean, dry and intact * Elevate throughout the day * No heavy lifting * Perform fist/ finger exercises throughout the day * Do not bathe or shower--keep splint dry * Call [facility] [place] orthopedics with any questions or concerns. * Follow up with orthopedics : 10/11/2215:30[facility] [place] [facility] Shiloh Maza MD
--- NOTE | 2022-09-27 13:30 | PC.NURSE ---
Pt alert and oriented X4, Discharge instructions given with verbal understanding, expressed the importance of cast maintenance, keeping it dry & to follow up with orthopedic surgery for removal. Pt ambulated via discharged. IV removed and intact.
--- NOTE | 2022-09-27 15:40 | MHC.CM.PN ---
Addendum entered by Nancy Sanchez RN 09/27/22 15:44: PT DISCHARGED HOME NO SERVICES AND PER NSG INDPENDENT W/CARE. Original Note: CM ATTEMPTED TO MEET W/PT HOWEVER PT HAD DISCHARGED THEREFORE CM UNABLE TO COMEPLETE INTAKE OR DELIVER RIGGS NOTICE.
== END 2022-09-27 13:30 | disposition home or self-care (01) ==
LOC: HO.SSS 16:05 → HO.S3 19:43
PROVIDERS: Internal Medicine; Orthopaedic Surgery; Visit Provider Student in an Organized Health Care Education/Training Program
PROC: (CPT 25263; principal; 2022-09-26 10:50)
DX: S66.012A Strain of long flexor muscle, fascia and tendon of left thumb at wrist and hand level, initial encounter (principal); W25.XXXA Contact with sharp glass, initial encounter; Y93.89 Activity, other specified; Y92.000 Kitchen of unspecified non-institutional (private) residence as the place of occurrence of the external cause; Y99.8 Other external cause status; G56.01 Carpal tunnel syndrome, right upper limb; Z98.890 Other specified postprocedural states; Z20.822 Contact with and (suspected) exposure to COVID-19; Z79.899 Other long term (current) drug therapy
CPT/HCPCS: 25263; 64721; 36415; 80048; 85025; 87635; J0690; J1100; J1170; J1650; J2250; J2270; J2405; J2795; J3010

== ENCOUNTER 2022-10-07 13:46 | Outpatient (REF) | payer MEDICARE, MEDICAID, SELFPAY ==
--- NOTE | ~2022-10-07 | MM_ITS ---
EXAMINATION: MM SCREENING DIGITAL BREAST TOMOSYNTHESIS, BILATERAL CLINICAL INFORMATION: Screening. Asymptomatic. COMPARISON: Mammography: 06/13/2018, 06/06/2017, 04/29/2016 TECHNIQUE: Digital breast tomosynthesis is performed in both the craniocaudal and mediolateral oblique views along with computer-aided detection (CAD). Synthesized 2D images are generated from the tomosynthesis. FINDINGS: There are scattered areas of fibroglandular density (ACR BI-RADS breast composition Category b). There are no significant masses, abnormal calcifications, or other abnormalities. Parenchymal pattern is similar to prior studies. There is biopsy clip marker again noted retroareolar right breast. The axilla and skin contours are unremarkable. MM/MM tomosynthesis screening BI IMPRESSION: No mammographic evidence of malignancy. ASSESSMENT: BI-RADS 1: Negative RECOMMENDATION: Routine annual mammography screening. This patient's information was entered into a reminder system with a target due date for their next mammogram.
== END 2022-10-07 13:47 | disposition home or self-care (01) ==
LOC: HO.MAMMO 13:46
PROVIDERS: PCP Nurse Practitioner Adult Health; Visit Provider Obstetrics & Gynecology
DX: Z12.31 Encounter for screening mammogram for malignant neoplasm of breast (principal)
CPT/HCPCS: 77063; 77067

== ENCOUNTER → 2022-10-11 15:49 | Outpatient (BNVA) | payer MEDICARE, MEDICAID, SELFPAY | PROVIDERS: PCP Nurse Practitioner Adult Health; Visit Provider Orthopaedic Surgery | DX: S66.812D Strain of other specified muscles, fascia and tendons at wrist and hand level, left hand, subsequent encounter (principal); Z86.69 Personal history of other diseases of the nervous system and sense organs | CPT/HCPCS: 99212 ==

== ENCOUNTER → 2022-11-08 12:47 | Outpatient (BNVA) | payer MEDICARE, MEDICAID, SELFPAY | PROVIDERS: PCP Nurse Practitioner Adult Health; Visit Provider Orthopaedic Surgery | DX: Z47.89 Encounter for other orthopedic aftercare (principal); S66.812D Strain of other specified muscles, fascia and tendons at wrist and hand level, left hand, subsequent encounter; Z98.890 Other specified postprocedural states | CPT/HCPCS: 99212 ==

== ENCOUNTER 2022-12-08 13:39 | Outpatient (REF) | payer MEDICARE, MEDICAID, SELFPAY ==
--- NOTE | ~2022-12-08 | CT_ITS ---
EXAMINATION: CT ABDOMEN AND PELVIS WITH CONTRAST CLINICAL INFORMATION: R10.9 - Unspecified abdominal pain COMPARISON: Pelvic ultrasound 02/03/2016 TECHNIQUE: Multidetector volumetric images were obtained from the superior aspect of the liver through the pubic symphysis following administration 85 mL of Omnipaque 350 intravenous contrast. Sagittal and coronal reformatted images were obtained on the technologist's workstation. Oral contrast: Yes This CT examination was performed using dose optimization techniques as appropriate, variously including the following: *Automated exposure control *Adjustment of mA and/or kV according to patient size (this includes techniques or standardized protocols for targeted exams where dose is matched to indication/reason for exam; i.e. extremities or head) *Use of iterative reconstruction technique DLP: 483 mGy-cm FINDINGS: LUNG BASES: No airspace consolidation or effusion. There are 2 subpleural solid nodules left posterior lateral base, both under 5 mm. Fleischner guidelines following impression. LIVER, GALLBLADDER, AND BILIARY TREE: The liver is normal in size, smooth in contour, and normal in attenuation. No focal hepatic parenchymal lesion. The gallbladder is mildly contracted, otherwise unremarkable. No visible stone or pericholecystic inflammatory change. There is intrahepatic and extrahepatic biliary ductal dilatation with common bile duct measuring approximately 1.3 cm in caliber. The distal duct tapers towards the ampulla without visible focal abrupt stricture or choledocholithiasis. PANCREAS: Normal in size and contour and attenuation. No pancreatic ductal distention. No peripancreatic inflammatory changes. SPLEEN: Unremarkable. ADRENAL GLANDS: Unremarkable. KIDNEYS AND URETERS: The kidneys are normal in size, shape, and attenuation. No hydronephrosis, hydroureter, or calculi seen. No perinephric stranding. BLADDER: Unremarkable. GASTROINTESTINAL TRACT: No bowel obstruction or inflammatory changes in bowel or mesentery. Normal appendix. No ascites or fluid collection. ABDOMINAL WALL: Borderline fat-containing umbilical hernia under 2 cm. LYMPH NODES: 2 portal caval nodes each approximately 0.8 cm short axis. No retroperitoneal or pelvic or inguinal lymphadenopathy. VASCULAR: Unremarkable. PELVIC VISCERA: Unremarkable. OSSEUS STRUCTURES: Degenerative changes lower lumbar spine. Grade 0-1 [address]ylol[address]hesis L4-L5. CT/CT abdomen pelvis w IV con IMPRESSION: 1. Intrahepatic and extrahepatic biliary ductal dilatation with common bile duct measuring 1.3 cm in caliber. No visible calculi. 2 portal caval nodes. 2. Unremarkable pancreas. No pancreatic ductal distention. 3. Two subpleural solid nodules left lung base under 5 mm. Fleischner guidelines below. Reference: The Fleischner Society recommendations for management of incidentally detected pulmonary nodules in adults age 35 and greater are based on average nodule size and patient risk category. The recommendations do not apply to lung cancer screening, patients with immunosuppression, or patients with known primary cancer. Multiple solid nodules average size < 6 mm: Low Risk Patient: No routine follow-up. High Risk Patient: Optional CT at 12 months. Use most suspicious nodule as guide to management. Follow-up intervals may vary according to size and risk.
[2022-12-08] MEDS: Barium Sulfate Oral (Mocha) 450 ML ORAL.SUSP 900 ML PO (16:38)
[2022-12-08] MEDS: iohexoL 350 MG/ML 100 ML INFUS..BTL 85 ML IV (16:38)
[2022-12-09 07:23] LABS: Creatinine POC 0.6 mg/dL (0.5-1.4); GFR POC > 60
== END 2022-12-08 13:40 | disposition home or self-care (01) ==
LOC: HO.CT 13:39
PROVIDERS: PCP Nurse Practitioner Adult Health; Visit Provider Obstetrics & Gynecology
DX: R10.9 Unspecified abdominal pain (principal)
CPT/HCPCS: 74177; 82565; Q9967

== ENCOUNTER 2022-12-09 14:00 | Outpatient (RCR) | payer MEDICARE, MEDICAID, SELFPAY ==
--- NOTE | 2022-11-25 15:37 | MHC.OT.EP ---
[address] [phone] Occupational Therapy Plan of Care Date of Evaluation: 11/25/22 Diagnosis: L thumb FPL rupture and repair L CTR Assessment: 62 yo female w/ left thumb laceration 09/06/22, seen in ED and sutured on volar thumb. 09/26/22 she is post-op surgical repair of FPL and also CTR by Dr Maza casted until 6 weeks then placed in [facility]. She has been referred to OT but missed her first appointment. On todays eval, she is not wearing orthosis but appears motivated and encouraged w/ assessment. She has decreased left thumb MCP flex and very limited IP flex, but tendon is intact and she has full active thumb extension and good digit ROM. Surgical scars are well healing and we have educated her on progression of range and integration of scar massage to volar thumb and palm. She will benefit from cont'd therapy services for progression of range, strength and functional return. Frequency and Duration: The patient will be seen 2x/wk for 6 weeks Short Term Goals: Active thumb IP flex 30 degrees Pt to demo active thumb-index opposition with good manipulation of light objects (buttons, zippers, etc) Ind w/ HEP Ind w/ use of heat/ice appropriately Ind w/ scar massage Test Examiner Goals: Active thumb IP flex 50 degrees Gross grasp >40lb Pt to demo good use of left thumb with more forecfuy activities (opening jars, bottles, etc) Pt to report ease w/ sleeping Treatment Plan: Therapeutic Exercise Therapeutic Activity Home Exercise Program Patient Education Desensitization/Sensory Re-ed Edema Control ADL Training Ultrasound NMES Paraffin Fluidotherapy MHP Cold Packs Joint Mobilization Soft Tissue Mobilization Kinesiotaping Electronically Signed By: Hawa Cloud OTR/L CHT Please Sign and return to therapist. Thank you once again for your referral.
--- NOTE | 2023-01-13 14:20 | MHC.OT.DC ---
[address] [phone] F: [phone] Occupational Therapy Discharge Note Provider: Dr Shiloh Maza Diagnosis: L thumb FPL rupture and repair L CTR Date of Surgery: 09/26/22 Date of Evaluation: 11/25/22 Date of Discharge: 01/13/23 Treatments to Date: 2 Cancellations to Date: 2 No Shows to Date: 3 Discharge Status: Patient Elected to Stop Discharge Summary: Salud was seen for initial OT assessment and one follow up visit. She has not been seen in therapy for greater than one month with several cancels and no-shows.She was seen by Dr Maza this week and reported she was not satisfied with plan, but has not discussed with therapist. At this time we will be discharging from services and she has been given HEP. Electronically Signed By: Hawa Cloud OTR/Lulu CHT Please Sign and return to therapist, thank you for your referral.
== END 2023-01-13 14:21 | disposition home or self-care (01) ==
LOC: HO.OT 14:00
PROVIDERS: Visit Provider Orthopaedic Surgery
DX: S66.812A Strain of other specified muscles, fascia and tendons at wrist and hand level, left hand, initial encounter (principal); G56.02 Carpal tunnel syndrome, left upper limb
CPT/HCPCS: 97110; 97140; 97165

== ENCOUNTER → 2023-01-10 14:41 | Outpatient (BNVA) | payer MEDICARE, MEDICAID, SELFPAY | PROVIDERS: PCP Nurse Practitioner Adult Health; Visit Provider Physician Assistant | DX: K59.09 Other constipation (principal); R93.5 Abnormal findings on diagnostic imaging of other abdominal regions, including retroperitoneum | CPT/HCPCS: 99202 ==

== ENCOUNTER → 2023-01-11 14:39 | Outpatient (BNVA) | payer MEDICARE, MEDICAID, SELFPAY | PROVIDERS: PCP Nurse Practitioner Adult Health; Visit Provider Orthopaedic Surgery | DX: S66.812D Strain of other specified muscles, fascia and tendons at wrist and hand level, left hand, subsequent encounter (principal); Z86.69 Personal history of other diseases of the nervous system and sense organs | CPT/HCPCS: 99212 ==

== ENCOUNTER 2023-04-11 11:40 | Outpatient (REF) | payer MEDICARE, MEDICAID, SELFPAY ==
--- NOTE | ~2023-04-11 | MR_ITS ---
EXAMINATION: MR ABDOMEN WITHOUT CONTRAST CLINICAL INFORMATION: Dilated CBD, long history of opioid COMPARISON: CT abdomen pelvis 12/08/2022 TECHNIQUE: MR abdomen is performed without gadolinium contrast. Heavily T2 weighted MRCP sequences were also obtained. FINDINGS: LUNG BASES: Unremarkable. ABDOMINAL AND PELVIC WALL: Unremarkable. LIVER AND BILIARY TREE: Common bile duct is dilated to 1.4 cm without intraluminal filling defect to suggest choledocholithiasis. There is mild intrahepatic biliary duct dilatation. The dome of the liver was included from the [id number] on multiple axial postcontrast sequences limiting evaluation. GALLBLADDER: Unremarkable. PANCREAS: No pancreatic duct dilatation or variant pancreatic ductal anatomy. No pancreatic mass appreciated however one cannot be excluded in the absence of intravenous contrast. SPLEEN: Unremarkable. ADRENAL GLANDS: Unremarkable. KIDNEYS AND URETERS: Unremarkable. GASTROINTESTINAL TRACT: Unremarkable. VASCULAR: Unremarkable. LYMPH NODES/PERITONEUM: No lymphadenopathy. FREE FLUID: None. OSSEOUS STRUCTURES: Unremarkable. MR/MR MRCP IMPRESSION: Moderate extra and mild intrahepatic biliary duct dilatation without intraluminal filling defect to suggest choledocholithiasis. No pancreatic duct dilatation or variant pancreatic ductal anatomy. No pancreatic mass appreciated however one cannot be excluded in the absence of intravenous contrast. The dome of the liver was included from the [id number] on multiple axial postcontrast sequences limiting evaluation.
== END 2023-04-11 11:41 | disposition home or self-care (01) ==
LOC: HO.MRI 11:40
PROVIDERS: PCP Nurse Practitioner Adult Health; Visit Provider Physician Assistant
DX: R93.5 Abnormal findings on diagnostic imaging of other abdominal regions, including retroperitoneum (principal)
CPT/HCPCS: 74181

== ENCOUNTER 2024-01-14 00:27 | Emergency (ER) | payer MEDICARE, MEDICAID, SELFPAY ==
--- NOTE | ~2024-01-14 | CT_ITS ---
EXAMINATION: CT HEAD WITHOUT CONTRAST CT CERVICAL SPINE WITHOUT CONTRAST CLINICAL INFORMATION: Headache. COMPARISON: None available. TECHNIQUE: Contiguous axial imaging was performed through the head and cervical spine without intravenous administration of contrast. Sagittal and coronal reformatted images also obtained. This CT examination was performed using dose optimization techniques as appropriate, variously including the following: *Automated exposure control *Adjustment of mA and/or kV according to patient size (this includes techniques or standardized protocols for targeted exams where dose is matched to indication/reason for exam; i.e. extremities or head) *Use of iterative reconstruction technique DLP: 835 mGy-cm FINDINGS: The lateral, third and fourth ventricles are normally outlined. The cortical sulci and basal cisterns are normally outlined as well. There is no acute territorial defect, hemorrhage or midline shift. The extra-axial spaces are unremarkable. Calvarium: Intact. Maxillofacial sinuses and mastoids: Clear as visualized. Cervical spine: The alignment is within normal limits. There is minimal/early diffuse cervical disc degenerative change with mild endplate sclerosis associated with diffuse mild facet osteoarthritic hypertrophic change without significant spinal canal and neuroforaminal narrowing. There is no fracture. The soft tissues are unremarkable. The visualized upper lung bar are clear. CT/CT head/brain wo IV con IMPRESSION: CT HEAD: No acute intracranial abnormality. CT CERVICAL SPINE: No acute fracture or malalignment of the cervical spine.
--- NOTE | ~2024-01-14 | CT_ITS ---
EXAMINATION: CT HEAD WITHOUT CONTRAST CT CERVICAL SPINE WITHOUT CONTRAST CLINICAL INFORMATION: Headache. COMPARISON: None available. TECHNIQUE: Contiguous axial imaging was performed through the head and cervical spine without intravenous administration of contrast. Sagittal and coronal reformatted images also obtained. This CT examination was performed using dose optimization techniques as appropriate, variously including the following: *Automated exposure control *Adjustment of mA and/or kV according to patient size (this includes techniques or standardized protocols for targeted exams where dose is matched to indication/reason for exam; i.e. extremities or head) *Use of iterative reconstruction technique DLP: 835 mGy-cm FINDINGS: The lateral, third and fourth ventricles are normally outlined. The cortical sulci and basal cisterns are normally outlined as well. There is no acute territorial defect, hemorrhage or midline shift. The extra-axial spaces are unremarkable. Calvarium: Intact. Maxillofacial sinuses and mastoids: Clear as visualized. Cervical spine: The alignment is within normal limits. There is minimal/early diffuse cervical disc degenerative change with mild endplate sclerosis associated with diffuse mild facet osteoarthritic hypertrophic change without significant spinal canal and neuroforaminal narrowing. There is no fracture. The soft tissues are unremarkable. The visualized upper lung bar are clear. CT/CT cervical spine wo IV con IMPRESSION: CT HEAD: No acute intracranial abnormality. CT CERVICAL SPINE: No acute fracture or malalignment of the cervical spine.
[2024-01-14 00:07] VITALS: BP 150/95; PULSE 74; O2SAT 98
[2024-01-14 00:36] VITALS: BP 132/64; PULSE 63; RESP 18; TEMP 36.7; O2SAT 97; BMI 31.5
--- NOTE | 2024-01-14 00:42 | ED_ITS ---
HPI - Headache General Chief Complaint: Headache Stated Complaint: severe headache Time Seen by Provider: 01/14/24 00:39 Source: patient Mode of arrival: EMS Limitations: no limitations History of Present Illness HPI Narrative: Comes to the emergency room complaining of a headache that has been present for 2-3 days, and severe neck pain that started about a week ago after she fell. Patient states that 1 week ago she had a fall, states she lost consciousness. Patient went to [facility] yesterday, states that they got a CT scan done and it was normal. Patient states that she did not get any pain medications, patient currently on a fentanyl patch, takes oxycodone scheduled for pain and alprazolam for anxiety.. Patient denies nausea or vomiting. Patient states that she does have history of migraines but this does not not feel like a typical migraine. Related Data Home Medications Medication Instructions Recorded Confirmed alprazolam 1 mg tablet 1 mg PO TID PRN anxiety 09/01/22 09/26/22 escitalopram oxalate 20 mg tablet 20 mg PO DAILY 09/01/22 09/26/22 estradiol 0.5 mg tablet 0.5 mg PO DAILY 09/01/22 09/26/22 fentanyl 75 mcg/hr transdermal 75 mcg topical 09/01/22 patch levothyroxine 150 mcg tablet 150 mcg PO DAILY 09/01/22 09/26/22 oxycodone 30 mg tablet 60 mg PO Q6H 09/01/22 09/26/22 sumatriptan succinate 100 mg tablet 100 mg PO NEEDED headache 09/23/22 09/26/22 Previous Rx's Medication Instructions Recorded bisacodyl 5 mg tablet,delayed 10 mg (2 x 5 mg) PO ONCE 01/10/23 release (Dulcolax (bisacodyl)) colonoscopy prep 1 day #2 tabs docusate sodium 100 mg capsule 200 mg (2 x 100 mg) PO BEDTIME #60 01/10/23 (Colace) caps polyethylene glycol 3350 17 17 g PO DAILY #510 grams 01/10/23 gram/dose oral powder (Miralax) polyethylene glycol 3350 17 238 g PO ONCE 1 day #238 grams 01/10/23 gram/dose oral powder (Miralax) methylcellulose (laxative) 500 mg 500 mg PO TID #90 tabs 04/20/23 tablet (Citrucel) Allergies Allergy/AdvReac Type Severity Reaction Status Date / Time minocycline Allergy Unknown Unknown Verified 01/11/23 14:59 Sulfa (Sulfonamide Allergy Unknown RASH Verified 01/11/23 14:59 Antibiotics) [SULFA (SULFONAMIDE ANTIBIOTICS)] tetracycline [TETRACYCLINE] Allergy Unknown PANCREATITI Verified 01/11/23 14:59 S Review of Systems 2 Review of Systems: Constitutional : No Weight loss, No Fever, No Chills, No Night Sweats, No Fatigue, No Malaise ENT/Mouth : No Hearing loss, No Ear Pain, No Nasal Congestion, No Sinus Pain, No Hoarseness, No sore throat, No Rhinorrhea, No Swallowing Difficulty Eyes: No Eye Pain, No Swelling, No Redness, No Foreign Body, No Discharge, No Vision Changes Cardiovascular : No Chest Pain, No SOB, No Dyspnea on Exertion, No Orthopnea, No Edema, No Palpitations Respiratory : No Cough, No Sputum, No Wheezing, No Smoke Exposure, No Dyspnea Gastrointestinal : No Nausea, No Vomiting, No Diarrhea, No Constipation, No abdominal Pain, No Hematochezia, No Melena Genitourinary : no irregular bleeding, No Dysuria, No Urinary Frequency, No Hematuria, No Urinary Incontinence, No Urgency, No Flank Pain, No Urinary Flow Changes, No Hesitancy Musculoskeletal : Complaining of neck pain for 1 week, No joint pain, No Myalgias, No Joint Swelling Skin : No Skin Lesions, No rash Neuro : No Weakness, No Numbness, No Paresthesias, No Loss of Consciousness, No Dizziness, complaining of Headache Psych : No Anxiety/Panic, No Depression, No SI/HI/AH/VH, No Social Issues, Heme/Lymph: No Bruising, No Bleeding,No Lymphadenopathy Endocrine : No Polyuria, No Polydipsia, No Temperature Intolerance PMFSH Past Medical History Medical History Accidental overdose History of chronic pain Rupture of flexor tendon of left hand Well woman exam Hypothyroidism Surgical History H/O foot surgery H/O wrist surgery History of back surgery Hx of section Family History Family History Other No family history of coronary artery disease Social History Social History Household Members: Friend(s) Housing: House Patient Tobacco Use Status: Never used Tobacco Advance Directives: No Advance Directives Information Provided: No Current occupational status: disabled Current occupation: rt hand Physical Exam 2 Vital Signs: Vital Signs: Last Vital Signs Temp 98.1 F 01/14/24 00:36 Pulse 63 01/14/24 00:36 Resp 18 01/14/24 00:36 BP 132/64 01/14/24 00:36 Pulse Ox 97 01/14/24 00:36 O2 Del Method Room Air 01/14/24 00:36 BMI result Body Mass Index 31.5 Const: Other: Appearance: Alert. Oriented X3. No acute distress. Eyes: Pupils equal, round and reactive to light. ENT: Pharynx normal. Neck: Normal inspection. Neck supple. No lymph nodes noted. No crepitus CVS: Normal heart rate and rhythm. Pulses normal. Normal S1 and S2 Respiratory: No respiratory distress. Breath sounds normal. No Wheezing. No rales Abdomen: Soft and nontender. No rigidity. No distention. Skin: Skin warm and dry. Normal skin color. Normal skin turgor. Extremities: No lower extremity edema. No Lacerations. No Rash Neuro: Oriented X 3. No motor deficit. No sensory deficit. Moving all extremities. No slurred speech. CN 2 through 12 grossly intact Psych: calm, cooperative, normal affect Course Course Course Narrative: -patient states that she was seen at [facility] couple of days ago, requesting records from [facility]. -patient states that she went to [facility] than they did not do anything for her. However, I got records from [facility], patient did get IV pain medications with morphine, Reglan, Compazine, IV fluids. Patient told the provider she was feeling better before she got discharged. They also did a head CT which was normal -all of patient's labs and imaging pending -I checked the mass pad, patient does get prescribed oxycodone, fentanyl patches and alprazolam Medications Administered Discontinued Medications Generic Name Dose Route Start Last Admin Trade Name Freq PRN Reason Stop Dose Admin Diphenhydramine HCl 50 mg 01/14/24 01:14 01/14/24 01:48 Diphenhydramine Hcl 50 Mg/Ml Vial IVPUSH 01/14/24 01:15 50 mg ONCE ONE Administration Sodium Chloride 1,000 mls @ 999 mls/hr 01/14/24 01:14 01/14/24 01:48 Ns IVCONT 01/14/24 02:14 999 mls/hr .Q1H1M ONE Administration Ketorolac Tromethamine 30 mg 01/14/24 01:14 01/14/24 01:48 Ketorolac Tromethamine 30 Mg/Ml Vial IVPUSH 01/14/24 01:15 30 mg ONCE ONE Administration Metoclopramide HCl 10 mg 01/14/24 01:14 01/14/24 01:48 Metoclopramide Hcl 10 Mg/2 Ml Vial IVPUSH 01/14/24 01:15 10 mg ONCE ONE Administration Medical Decision Making Medical Decision Making [facility] Narrative: -my interpretation of CT scan of the head: No intracranial bleed, cervical spine, no obvious fracture. -my interpretation of labs: Normal hematology, unremarkable chemistry, ETOH negative -I discussed the CT scan interpretation with the patient, patient states that she feels much better upon discharge -patient states that she has Imitrex at home, does not need a prescription. Differential Diagnosis Differential Diagnoses: The differential diagnosis associated with the presentation includes (Migraine, stevenson migraines. occular migraine, chronic cervical spine pain) Admission/Observation Consideration of admission/observation: Escalation of care including admission/observation considered (Given patient's symptoms, patient was considered) Lab Data [facility] Lab Attestation statement: I reviewed the patient's lab results. 01/14/24 01:22 01/14/24 01:22 Labs: Lab Results 01/14/24 Range/Units 01:22 WBC 9.2 (4.8-10.8) X10*3/uL RBC 4.20 (4.20-5.50) X10*6/uL Hgb 13.1 (12.0-16.0) g/dl Hct 38.8 (37.0-47.0) % MCV 92.4 (80.0-98.0) fL MCH 31.2 (27.0-33.0) pg MCHC 33.8 (31.0-35.0) g/dl RDW 12.7 (11.0-16.0) % Plt Count 243 (160-400) X10*3/uL MPV 9.5 (9.4-12.3) fL Immature Gran % (Auto) 0.1 (0.0-0.4) % Neut % (Auto) 72.3 (45-73) % Lymph % (Auto) 19.7 L (20-40) % [place] % (Auto) 6.4 (2-11) % Eos % (Auto) 1.2 (0-4) % Baso % (Auto) 0.3 (0-2) % Lymph # (Auto) 1.8 (1.2-4.9) X10*3/uL [place] # (Auto) 0.6 (0.1-1.2) X10*3/uL Eos # (Auto) 0.1 (0.0-0.4) X10*3/uL Baso # (Auto) 0.0 (0.0-0.2) X10*3/uL Abs Immat Gran (auto) 0.01 (0.00-0.03) X10*3/uL Absolute Neuts (auto) 6.6 (2.0-8.3) x10*3/uL Absolute Nucleated RBC 0.000 (0.0-0.012) X10*3/uL Nucleated RBC % (auto) 0.0 (0.0-0.2) /100WBC Sodium 140 (135-145) mmol/L Potassium 3.9 (3.3-5.1) mmol/L Chloride 103 (96-108) mmol/L Carbon Dioxide 30 H (22-29) mmol/L Anion Gap 11 L (12-20) BUN 17 H (9-16) mg/dL Creatinine 1.04 (0.5-1.4) mg/dL Estim Creat Clear Calc 59.2 Estimated GFR 54 Random Glucose 108 (60-115) mg/dL Calcium 9.7 D (8.4-10.2) mg/dL Total Bilirubin 0.4 (0.0-1.0) mg/dL Direct Bilirubin 0.2 (0.0-0.5) mg/dL AST 26 (5-31) U/L ALT 18 (0-31) U/L Alkaline Phosphatase 118 H (39-117) U/L Total Protein 7.5 (6.5-8.0) g/dL Albumin 4.1 (3.5-5.0) g/dL Ethyl Alcohol < 10 mg/dL Independent Interpretation I performed an independent interpretation of an: CT Scan Radiology Impression Discussion of test interpretation with radiology: I have reviewed the radiologist's reading. Radiologist Impression: FINDINGS: The lateral, third and fourth ventricles are normally outlined. The cortical sulci and basal cisterns are normally outlined as well. There is no acute territorial defect, hemorrhage or midline shift. The extra-axial spaces are unremarkable. Calvarium: Intact. Maxillofacial sinuses and mastoids: Clear as visualized. Cervical spine: The alignment is within normal limits. There is minimal/early diffuse cervical disc degenerative change with mild endplate sclerosis associated with diffuse mild facet osteoarthritic hypertrophic change without significant spinal canal and neuroforaminal narrowing. There is no fracture. The soft tissues are unremarkable. The visualized upper lung bar are clear. CT/CT cervical spine wo IV con IMPRESSION: CT HEAD: No acute intracranial abnormality. CT CERVICAL SPINE: No acute fracture or malalignment of the cervical spine. Critical Care Time Critical Care Time Critical Care Time: Yes Total Critical Care Time: 30 Attestation: I have personally provided critical care time. Time includes review of lab data, radiology results, discussion with consultants, and monitoring for potential decompensation. Intervention performed as documented. Discharge Plan Discharge Clinical Impression: Headache, migraine, Neck pain Patient Disposition: Home, Self-Care Instructions: Migraine Headache (ED) Additional Instructions: Please follow-up with your primary care physician tomorrow. If you have any worsening or new symptoms, please return to the emergency room or call 911 Prescriptions: No Action Citrucel 500 mg tablet 500 mg PO TID Qty: 90 5RF levothyroxine 150 mcg tablet 150 mcg PO DAILY alprazolam 1 mg tablet 1 mg PO TID PRN (Reason: anxiety) Rx Instructions: TOOK 2MG THIS AM oxycodone 30 mg tablet 60 mg PO Q6H fentanyl 75 mcg/hr patch 72 hour 75 mcg topical Rx Instructions: every 48 hours every two days escitalopram oxalate 20 mg tablet 20 mg PO DAILY estradiol 0.5 mg tablet 0.5 mg PO DAILY sumatriptan succinate 100 mg tablet 100 mg PO NEEDED docusate sodium [Colace] 100 mg capsule 200 mg PO BEDTIME Qty: 60 5RF bisacodyl [Dulcolax (bisacodyl)] 5 mg tablet,delayed release (DR/EC) 10 mg PO ONCE 1 Days Qty: 2 0RF Rx Instructions: Take 2 tablets by mouth at 12:00pm the day before your procedure. polyethylene glycol 3350 [Miralax] 17 gram/dose powder 238 g PO ONCE 1 Days Qty: 238 0RF Rx Instructions: Take as directed by mouth the day before your procedure. polyethylene glycol 3350 [Miralax] 17 gram/dose powder 17 g PO DAILY Qty: 510 6RF
[2024-01-14 01:26] LABS: MANUAL DIFF FLAG NO
[2024-01-14 01:27] LABS: Basophils Percent Auto 0.3 % (0-2); Eosinophils Absolute Auto 0.1 X10*3/uL (0.0-0.4); Eosinophils Percent Auto 1.2 % (0-4); Hematocrit 38.8 % (37.0-47.0); Hemoglobin 13.1 g/dl (12.0-16.0); Imm Gran Abs Auto 0.01 X10*3/uL (0.00-0.03); Imm Gran Pct Auto 0.1 % (0.0-0.4); Lymphocytes Absolute Auto 1.8 X10*3/uL (1.2-4.9); Lymphocytes Percent Auto 19.7 % (20-40); Mean Corpuscular HGB Conc 33.8 g/dl (31.0-35.0); Mean Corpuscular Hemoglobin 31.2 pg (27.0-33.0); Mean Corpuscular Volume 92.4 fL (80.0-98.0); Mean Platelet Volume 9.5 fL (9.4-12.3); Monocytes Absolute Auto 0.6 X10*3/uL (0.1-1.2); Monocytes Percent Auto 6.4 % (2-11); Neutrophils Absolute Auto 6.6 x10*3/uL (2.0-8.3); Neutrophils Percent Auto 72.3 % (45-73); Platelet Count 243 X10*3/uL (160-400); Red Cell Distribution Width 12.7 % (11.0-16.0); White Blood Count 9.2 X10*3/uL (4.8-10.8)
[2024-01-14 01:44] LABS: Ethanol < 10 mg/dL
[2024-01-14 01:48] LABS: Alanine Aminotransferase 18 U/L (0-31); Albumin Level 4.1 g/dL (3.5-5.0); Alkaline Phosphatase 118 U/L (39-117); Anion Gap 11 (12-20); Aspartate Amino Transferase 26 U/L (5-31); Bilirubin Direct 0.2 mg/dL (0.0-0.5); Bilirubin Total 0.4 mg/dL (0.0-1.0); Blood Urea Nitrogen 17 mg/dL (9-16); Calcium 9.7 mg/dL (8.4-10.2); Carbon Dioxide 30 mmol/L (22-29); Chloride 103 mmol/L (96-108); Creatinine Clr Calc Pharmacy 59.2; Estimated Glomerular Filt Rate 54; Glucose Random 108 mg/dL (60-115); Potassium 3.9 mmol/L (3.3-5.1); Sodium 140 mmol/L (135-145); Total Protein 7.5 g/dL (6.5-8.0)
[2024-01-14] MEDS: Ketorolac Tromethamine 30 MG/ML VIAL IVPUSH (01:48)
[2024-01-14] MEDS: diphenhydrAMINE HCL 50 MG/ML VIAL IVPUSH (01:48)
[2024-01-14] MEDS: Metoclopramide HCl 10 MG/2 ML VIAL IVPUSH (01:48)
[2024-01-14] MEDS: 0.9 % Sodium Chloride 1,000 ML 999 ML IVCONT (01:48)
[2024-01-14 03:08] VITALS: BP 129/64; PULSE 60; RESP 16; O2SAT 97
== END 2024-01-14 03:15 | disposition home or self-care (01) ==
PROVIDERS: Emergency Provider Emergency Medicine; PCP Nurse Practitioner Adult Health
DX: G43.909 Migraine, unspecified, not intractable, without status migrainosus (principal); M54.2 Cervicalgia; Z79.899 Other long term (current) drug therapy
CPT/HCPCS: 36415; 70450; 72125; 80048; 80076; 80307; 85025; 96361; 96374; 96375; 99284; J1200; J1885; J2765

== ENCOUNTER 2024-01-17 16:40 | Emergency (ER) | payer MEDICARE, MEDICAID, SELFPAY ==
--- NOTE | 2024-01-17 16:43 | ECG_ITS ---
Test Reason : right shoulder pain Blood Pressure : / mmHG Vent. Rate : 061 BPM Atrial Rate : 061 BPM P-R Int : 178 ms QRS Dur : 076 ms QT Int : 406 ms P-R-T Axes : 066 082 059 degrees QTc Int : 408 ms Normal sinus rhythm Normal ECG No previous ECGs available Referred By: Carmen Joya Electronically Signed By:CHELSEY FRANCO MD
--- NOTE | 2024-01-17 16:55 | ED_ITS ---
HPI - Chest Pain General Chief Complaint: Headache Stated Complaint: pounding headache, chest pain Time Seen by Provider: 01/17/24 20:23 Source: patient Mode of arrival: ambulatory Limitations: no limitations History of Present Illness HPI narrative: 63-year-old female history of chronic back pain on fentanyl patches, hypothyroidism, migraine headache who presents emergency department for evaluation of headache. Patient states that approximately 1 week prior she fell and struck her head on a dresser drawer with loss of consciousness she states that since that time she has been having a pounding headache which is been intermittent. She states the headache is located in the back of her head and goes down her neck she has been taking ibuprofen and Tylenol with no relief for the pain. Patient was seen at [facility] and had a CT scan of the brain which was negative, at that time she was treated with morphine, Reglan and Compazine as well as IV fluids and she states that this helped briefly with her pain but then her pain came back. She was seen in the emergency department on 01/14/[address] scan of the head and cervical spine with no acute findings. She states she is currently experiencing the headache and the pain is 10/10 she denied fever, chills, rhinorrhea, sore throat, cough. She states that she does get intermittent chest pain and intermittent shortness of breath. She states she does have nausea but no vomiting Related Data Home Medications Medication Instructions Recorded Confirmed alprazolam 1 mg tablet 1 mg PO TID PRN anxiety 09/01/22 09/26/22 escitalopram oxalate 20 mg tablet 20 mg PO DAILY 09/01/22 09/26/22 estradiol 0.5 mg tablet 0.5 mg PO DAILY 09/01/22 09/26/22 fentanyl 75 mcg/hr transdermal 75 mcg topical 09/01/22 patch levothyroxine 150 mcg tablet 150 mcg PO DAILY 09/01/22 09/26/22 oxycodone 30 mg tablet 60 mg PO Q6H 09/01/22 09/26/22 sumatriptan succinate 100 mg tablet 100 mg PO NEEDED headache 09/23/22 09/26/22 Previous Rx's Medication Instructions Recorded bisacodyl 5 mg tablet,delayed 10 mg (2 x 5 mg) PO ONCE 01/10/23 release (Dulcolax (bisacodyl)) colonoscopy prep 1 day #2 tabs docusate sodium 100 mg capsule 200 mg (2 x 100 mg) PO BEDTIME #60 01/10/23 (Colace) caps polyethylene glycol 3350 17 17 g PO DAILY #510 grams 01/10/23 gram/dose oral powder (Miralax) polyethylene glycol 3350 17 238 g PO ONCE 1 day #238 grams 01/10/23 gram/dose oral powder (Miralax) methylcellulose (laxative) 500 mg 500 mg PO TID #90 tabs 04/20/23 tablet (Citrucel) metoclopramide HCl 10 mg tablet 10 mg PO Q6H PRN Headache nausea 01/17/24 (Reglan) and vomiting #14 tabs cefuroxime axetil 250 mg tablet 250 mg PO BID 7 days #14 tabs 01/23/24 Allergies Allergy/AdvReac Type Severity Reaction Status Date / Time minocycline Allergy Unknown Unknown Verified 01/17/24 16:56 Sulfa (Sulfonamide Allergy Unknown RASH Verified 01/17/24 16:56 Antibiotics) [SULFA (SULFONAMIDE ANTIBIOTICS)] tetracycline [TETRACYCLINE] Allergy Unknown PANCREATITI Verified 01/17/24 16:56 S Review of Systems 2 Review of Systems: Yes all other systems are reviewed and are negative [facility] Past Medical History [facility] Narrative: Social history: She denies tobacco use. She does drink wine occasionally. She denies drug use. She is prescribed fentanyl patches, oxycodone and alprazolam. Medical History Accidental overdose History of chronic pain Rupture of flexor tendon of left hand Well woman exam Hypothyroidism Surgical History H/O foot surgery H/O wrist surgery History of back surgery Hx of section Family History Family History Other No family history of coronary artery disease Social History Social History Household Members: Friend(s) Housing: House Patient Tobacco Use Status: Never used Tobacco Smoked in Last 30 Days: No Use of substances other than those prescribed or required for medical reasons: No Advance Directives: No Advance Directives Information Provided: No Current occupational status: disabled Current occupation: rt hand Physical Exam 2 Vital Signs: Vital Signs: Last Vital Signs Temp 98.3 F 01/17/24 20:11 Pulse 56 01/17/24 20:11 Resp 20 01/17/24 20:11 BP 124/75 01/17/24 20:11 Pulse Ox 95 01/17/24 20:11 O2 Del Method Room Air 01/17/24 20:11 BMI result Body Mass Index 28.4 Vital signs were normal Exam General: Awake, alert in no distress Head: Normocephalic, atraumatic EENT: PERRL, Lids normal, sclera normal, conjunctiva normal, nose normal , ears normal, throat without erythema or exudates Neck: Supple, no adenopathy Lung: breath sounds symmetric, no wheezing, rales or rhonchi Chest: symmetric movement, nontender Heart: regular rate and rhythm, normal S1, S2 no murmurs or rubs Abdomen: soft, non-tender, nondistended, normal bowel sounds Back: no vertebral tenderness, no CVAT Extremities: no deformities, moves all extremities symmetrically Skin: no rashes, no lesion, normal color and warmth Neuro: Awake, alert, oriented, normal speech, cranial nerves intact, moves all extremities symmetrically Psych: Pleasant, cooperative Course Course Course Narrative: RME: 63 year-old F w/ PMHx Overdose, Hypothyroid, presenting to the ED c/o intermittent GARCIA since Monday w/throat constricting feeling & difficulty swallowing food. Also reports syncope x2 & chest pain. Patient was seen & tx in our ED 01/14/24 & also was seen at [facility] had negative CT. States sx are the same/unchanged just not going away appears under the influence. EKG, Labs, viral testing GOMEZ ordered Full HPI, ROS and PE to be performed by primary ED provider. Reevaluation(s) Reevaluation #1: 01/23/2024 - 9:30 a.m. - urine culture returns, it appears as though patient has a urinary tract infection. Left message on voicemail and sent over prescription for Ceftin. Medications Administered Discontinued Medications Generic Name Dose Route Start Last Admin Trade Name Freq PRN Reason Stop Dose Admin Acetaminophen 975 mg 01/17/24 20:48 01/17/24 20:59 Acetaminophen 325 Mg Tablet PO 01/17/24 20:49 975 mg ONCE STA Administration Aspirin 81 mg 01/17/24 20:48 01/17/24 21:00 Aspirin 81 Mg Tab.Chew PO 01/17/24 20:49 81 mg ONCE ONE Administration Diphenhydramine HCl 50 mg 01/17/24 20:48 01/17/24 21:00 Diphenhydramine Hcl 25 Mg Capsule PO 01/17/24 20:49 50 mg ONCE ONE Administration Metoclopramide HCl 10 mg 01/17/24 20:48 01/17/24 21:00 Metoclopramide Hcl 10 Mg Tablet PO 01/17/24 20:49 10 mg ONCE STA Administration Medical Decision Making Medical Decision Making [facility] Narrative: 63-year-old female history of chronic back pain on fentanyl patches, hypothyroidism, migraine Head who presents emergency department for evaluation of headache. Patient states that approximately 1 week prior she fell and struck her head on a dresser drawer with loss of consciousness she states that since that time she has been having a pounding headache which is been intermittent. Patient was evaluated at [facility] and had negative CT scan of the head and neck and was seen here on 01/14/[address] scan of the head and neck as well pain. Patient's vital signs were normal. Exam was unremarkable. Differential diagnosis: Migraine syndrome, postconcussion syndrome, headache, electrolyte abnormalities, anemia Following evaluation was ordered: CBC, BMP, liver panel, magnesium, drug screen urine, ethanol level, urinalysis, EKG Patient was initially treated with the following: Tylenol 975 mg orally, Reglan 10 mg orally, Benadryl 50 mg orally and aspirin 81 mg orally 20:57 My interpretation patient's laboratory evaluation is as follows: Potassium was slightly elevated 5.6, otherwise CMP was normal. CBC was normal. COVID-19, influenza and RSV were negative Twelve EKG was unremarkable pain Patient's presentation is consistent with migraine headache versus postconcussion syndrome Patient had some relief with the above treatment and she was given this regimen take at home to see if this improves her symptoms Admission/Observation Consideration of admission/observation: Escalation of care including admission/observation considered Lab Data [facility] Lab Attestation statement: I reviewed the patient's lab results. 01/17/24 17:21 01/17/24 17:21 Labs: Lab Results 01/17/24 01/17/24 Range/Units 17:21 19:26 WBC 7.0 (4.8-10.8) X10*3/uL RBC 4.15 L (4.20-5.50) X10*6/uL Hgb 13.1 (12.0-16.0) g/dl Hct 37.7 (37.0-47.0) % MCV 90.8 (80.0-98.0) fL MCH 31.6 (27.0-33.0) pg MCHC 34.7 (31.0-35.0) g/dl RDW 12.5 (11.0-16.0) % Plt Count 204 (160-400) X10*3/uL MPV 10.3 (9.4-12.3) fL Immature Gran % (Auto) 0.3 (0.0-0.4) % Neut % (Auto) 58.2 (45-73) % Lymph % (Auto) 28.5 (20-40) % [place] % (Auto) 9.0 (2-11) % Eos % (Auto) 3.4 (0-4) % Baso % (Auto) 0.6 (0-2) % Lymph # (Auto) 2.0 (1.2-4.9) X10*3/uL [place] # (Auto) 0.6 (0.1-1.2) X10*3/uL Eos # (Auto) 0.2 (0.0-0.4) X10*3/uL Baso # (Auto) 0.0 (0.0-0.2) X10*3/uL Abs Immat Gran (auto) 0.02 (0.00-0.03) X10*3/uL Absolute Neuts (auto) 4.1 (2.0-8.3) x10*3/uL Absolute Nucleated RBC 0.000 (0.0-0.012) X10*3/uL Nucleated RBC % (auto) 0.0 (0.0-0.2) /100WBC Sodium 140 (135-145) mmol/L Potassium 5.6 H D (3.3-5.1) mmol/L Chloride 106 (96-108) mmol/L Carbon Dioxide 27 (22-29) mmol/L Anion Gap 13 (12-20) BUN 15 (9-16) mg/dL Creatinine 0.95 (0.5-1.4) mg/dL Estim Creat Clear Calc 62.1 Estimated GFR 60 Random Glucose 78 (60-115) mg/dL Calcium 9.8 (8.4-10.2) mg/dL Magnesium 2.2 (1.6-2.6) mg/dL Total Bilirubin 0.2 (0.0-1.0) mg/dL Direct Bilirubin < 0.2 (0.0-0.5) mg/dL AST 30 (5-31) U/L ALT 19 (0-31) U/L Alkaline Phosphatase 97 (39-117) U/L Total Protein 7.4 (6.5-8.0) g/dL Albumin 3.9 (3.5-5.0) g/dL Urine Color Yellow Urine Appearance Clear Urine pH 7.0 (5.0-9.0) Ur Specific [place] 1.010 (1.005-1.025) Urine Protein Negative (Neg-Trace) mg/dL Urine Glucose (UA) Negative (Negative) mg/dL Urine Ketones Negative (Negative) mg/dL Urine Blood Negative (Negative) Urine Nitrite Positive H (Negative) Ur Leukocyte Esterase Small (1+) H (Negative) Urine RBC 0-2 (0-2) /HPF Urine WBC 0-5 (0-5) /HPF Ur Squamous Epith Cells 0-2 (0-2) /HPF Urine Bacteria 1+ (None Seen) Hyaline Casts 0-2 (0-2) /LPF Urine Opiates Screen Not Detected (Not Detect) Urine Fentanyl Screen POSITIVE H (Not Detect) Ur Barbiturates Screen Not Detected (Not Detect) Ur Phencyclidine Scrn Not Detected (Not Detect) Ur Amphetamines Screen Not Detected (Not Detect) U Benzodiazepines Scrn POSITIVE H (Not Detect) Urine Cocaine Screen Not Detected (Not Detect) U Marijuana (THC) Screen Not Detected (Not Detect) Ethyl Alcohol < 10 mg/dL Influenza Type A (PCR) NEGATIVE (Negative) Influenza Type B (PCR) NEGATIVE (Negative) RSV RNA Qual (PCR) NEGATIVE (Negative) SARS-CoV-2 RNA (RT-PCR) NEGATIVE (Negative) Independent Interpretation I performed an independent interpretation of an: EKG Interpretation: My independent interpretation patient's 12 EKG done at 16:45 hours is as follows normal sinus rhythm with a rate of 61, normal NM interval, QRS duration QTC interval, no ST segment elevation, no ST segment depression, no T-wave abnormalities, no PACs, no PVCs-this is a normal EKG Discharge Plan Discharge Clinical Impression: Post-concussion headache Patient Disposition: Home, Self-Care Additional Instructions: Your symptoms are consistent with postconcussion headache I want you to take the following 3 medications together every 6 hours as needed for headache, nausea or vomiting. ? Reglan (metoclopramide) in 10 mg, 1 pill Benadryl 25 mg, 2 pills Excedrin migraine, 2 pills. After you take these medications, lie down in a dark quiet room and try to fall asleep. ?These medications will make you sleepy, do not drive or work after taking these medications. Follow-up with your doctor in 2 days. Please return to the emergency department if your symptoms get worse or if you develop any symptoms that are concerning to you. Prescriptions: New metoclopramide HCl [Reglan] 10 mg tablet 10 mg PO Q6H PRN (Reason: Headache nausea and vomiting) Qty: 14 0RF cefuroxime axetil 250 mg tablet 250 mg PO BID 7 Days Qty: 14 0RF No Action Citrucel 500 mg tablet 500 mg PO TID Qty: 90 5RF levothyroxine 150 mcg tablet 150 mcg PO DAILY alprazolam 1 mg tablet 1 mg PO TID PRN (Reason: anxiety) Rx Instructions: TOOK 2MG THIS AM oxycodone 30 mg tablet 60 mg PO Q6H fentanyl 75 mcg/hr patch 72 hour 75 mcg topical Rx Instructions: every 48 hours every two days escitalopram oxalate 20 mg tablet 20 mg PO DAILY estradiol 0.5 mg tablet 0.5 mg PO DAILY sumatriptan succinate 100 mg tablet 100 mg PO NEEDED docusate sodium [Colace] 100 mg capsule 200 mg PO BEDTIME Qty: 60 5RF bisacodyl [Dulcolax (bisacodyl)] 5 mg tablet,delayed release (DR/EC) 10 mg PO ONCE 1 Days Qty: 2 0RF Rx Instructions: Take 2 tablets by mouth at 12:00pm the day before your procedure. polyethylene glycol 3350 [Miralax] 17 gram/dose powder 238 g PO ONCE 1 Days Qty: 238 0RF Rx Instructions: Take as directed by mouth the day before your procedure. polyethylene glycol 3350 [Miralax] 17 gram/dose powder 17 g PO DAILY Qty: 510 6RF Interventions: ED Discharge Assessment Last Done: 01/17/24 22:18 Discharge Date/Time: 01/17/24 22:19
[2024-01-17 16:56] VITALS: BP 132/75; PULSE 63; RESP 16; TEMP 36.6; O2SAT 97; BMI 28.4
--- NOTE | 2024-01-17 16:56 | MHC.EDTECH ---
PATIENT EKG TAKEN AND WAS READ BY PROVIDER
[2024-01-17 17:26] LABS: MANUAL DIFF FLAG NO
[2024-01-17 17:34] LABS: Basophils Percent Auto 0.6 % (0-2); Eosinophils Absolute Auto 0.2 X10*3/uL (0.0-0.4); Eosinophils Percent Auto 3.4 % (0-4); Hematocrit 37.7 % (37.0-47.0); Hemoglobin 13.1 g/dl (12.0-16.0); Imm Gran Abs Auto 0.02 X10*3/uL (0.00-0.03); Imm Gran Pct Auto 0.3 % (0.0-0.4); Lymphocytes Percent Auto 28.5 % (20-40); Mean Corpuscular HGB Conc 34.7 g/dl (31.0-35.0); Mean Corpuscular Hemoglobin 31.6 pg (27.0-33.0); Mean Corpuscular Volume 90.8 fL (80.0-98.0); Mean Platelet Volume 10.3 fL (9.4-12.3); Monocytes Absolute Auto 0.6 X10*3/uL (0.1-1.2); Neutrophils Absolute Auto 4.1 x10*3/uL (2.0-8.3); Neutrophils Percent Auto 58.2 % (45-73); Platelet Count 204 X10*3/uL (160-400); Red Blood Count 4.15 X10*6/uL (4.20-5.50); Red Cell Distribution Width 12.5 % (11.0-16.0)
[2024-01-17 17:44] LABS: Ethanol < 10 mg/dL
[2024-01-17 17:45] LABS: Alanine Aminotransferase 19 U/L (0-31); Albumin Level 3.9 g/dL (3.5-5.0); Alkaline Phosphatase 97 U/L (39-117); Anion Gap 13 (12-20); Aspartate Amino Transferase 30 U/L (5-31); Bilirubin Direct < 0.2 mg/dL (0.0-0.5); Bilirubin Total 0.2 mg/dL (0.0-1.0); Blood Urea Nitrogen 15 mg/dL (9-16); Calcium 9.8 mg/dL (8.4-10.2); Carbon Dioxide 27 mmol/L (22-29); Chloride 106 mmol/L (96-108); Creatinine Clr Calc Pharmacy 62.1; Estimated Glomerular Filt Rate 60; Glucose Random 78 mg/dL (60-115); Magnesium 2.2 mg/dL (1.6-2.6); Potassium 5.6 mmol/L (3.3-5.1); Sodium 140 mmol/L (135-145); Total Protein 7.4 g/dL (6.5-8.0)
[2024-01-17 18:05] LABS: Influenza A PCR NEGATIVE (Negative); Influenza B PCR NEGATIVE (Negative); Resp Syncy Virus RNA Qual PCR NEGATIVE (Negative); SARS COV2 PCR INHOUSE NEGATIVE (Negative)
--- NOTE | 2024-01-17 19:31 | PC.NURSE ---
urine sample obtained and sent to lab
--- NOTE | 2024-01-17 19:33 | PC.NURSE ---
pt from home reporting multiple weeks of lower back pain that radiates into the neck and back of head. pt reports she was seen at [facility] for these symptoms Monday and reports being diagnosed with migraines, pt reports pain has not subsided. pt reports pain is intermittent and worsens with movement. pt able to speak in full clear sentences and walk with steady gait.
[2024-01-17 19:37] LABS: Appearance Urine Clear; Color Urine Yellow; Glucose Urine UA Negative (Negative); Leukocyte Esterase Urine Small (1+) (Negative); Nitrite Urine Positive (Negative); UMIC TRIGGER UACC YES; Urine Blood Negative (Negative); Urine Ketones Negative (Negative); Urine Protein Negative (Neg-Trace)
[2024-01-17 19:42] LABS: Amphetamine Screen Urine Not Detected (Not Detect); Barbiturates, Urine Not Detected (Not Detect); Benzodiazepines Screen Urine POSITIVE (Not Detect); Cannabinoid Screen Urine Not Detected (Not Detect); Cocaine Screen Urine Not Detected (Not Detect); Fentanyl, urine POSITIVE (Not Detect); Opiate Screen Urine Not Detected (Not Detect); Phencyclidine Screen Urine Not Detected (Not Detect)
[2024-01-17 20:11] VITALS: BP 124/75; PULSE 56; RESP 20; TEMP 36.8; O2SAT 95
[2024-01-17 20:53] LABS: Bacteria Urine 1+ (None Seen); Hyaline Casts Urine 0-2 /LPF (0-2); RBC Urine 0-2 /HPF (0-2); Squamous Epithelial Cell Urine 0-2 /HPF (0-2); UACC Culture Trigger YES; WBC Urine 0-5 /HPF (0-5)
[2024-01-17] MEDS: Acetaminophen 325 MG TABLET 975 MG PO (20:59)
[2024-01-17] MEDS: Metoclopramide HCl 10 MG TABLET PO (21:00)
[2024-01-17] MEDS: Aspirin 81 MG TAB.CHEW PO (21:00)
[2024-01-17] MEDS: diphenhydrAMINE HCL 25 MG CAPSULE 50 MG PO (21:00)
--- NOTE | 2024-01-17 21:01 | PC.NURSE ---
pt medicated per jan. pt tolerated well with water.
== END 2024-01-17 22:19 | disposition home or self-care (01) ==
PROVIDERS: Physician Assistant; Emergency Provider Emergency Medicine Emergency Medical Services
DX: G44.309 Post-traumatic headache, unspecified, not intractable (principal); F07.81 Postconcussional syndrome; R06.02 Shortness of breath; Z11.52 Encounter for screening for COVID-19; Z20.828 Contact with and (suspected) exposure to other viral communicable diseases; G89.4 Chronic pain syndrome; Z79.899 Other long term (current) drug therapy
CPT/HCPCS: 0241U; 36415; 80048; 80076; 80307; 81001; 83735; 85025; 87086; 87088; 87186; 93005; 99283; 99285

== ENCOUNTER → 2024-01-17 16:43 | Outpatient (BNV) | payer MEDICARE, MEDICAID, SELFPAY | PROVIDERS: Emergency Provider Emergency Medicine Emergency Medical Services; Visit Provider Internal Medicine Cardiovascular Disease | DX: R51.9 Headache, unspecified (principal) | CPT/HCPCS: 93010 ==

== ENCOUNTER 2024-01-23 18:47 | Emergency (ER) | payer MEDICARE, MEDICAID, SELFPAY ==
--- NOTE | ~2024-01-23 | CT_ITS ---
EXAMINATION: CT HEAD WITHOUT CONTRAST CLINICAL INFORMATION: Syncope. Head strike. COMPARISON: CT head January 14, 2024 TECHNIQUE: Contiguous axial imaging was performed from the skull base to vertex without intravenous administration of contrast. Coronal and sagittal reformatted images are performed at the CT scanner. [This CT examination was performed using dose optimization techniques as appropriate, variously including the following: *Automated exposure control *Adjustment of mA and/or kV according to patient size (this includes techniques or standardized protocols for targeted exams where dose is matched to indication/reason for exam; i.e. extremities or head) *Use of iterative reconstruction technique] DLP: 610 mGy-cm. FINDINGS: There is no evidence of acute intracranial hemorrhage or territorial infarction. No abnormal mass-effect or midline shift is seen. Delong to white matter differentiation is well preserved. No extra-axial fluid collections are identified. The ventricles are normal in size. There is no abnormal attenuation within the brain parenchyma. There is no osseous abnormality. The mastoid air cells and visualized portions of the paranasal sinuses are well-aerated. CT/CT head/brain wo IV con IMPRESSION: No acute intracranial pathology.
--- NOTE | 2024-01-23 19:16 | ED_ITS ---
HPI - General Adult General Chief complaint: Headache Stated complaint: headache Time Seen by Provider: 01/23/24 21:36 Source: patient Mode of arrival: ambulatory Limitations: no limitations History of Present Illness HPI narrative: Patient history of depression chronic pain on multiple pain medications including oxycodone, fentanyl, Benadryl, Xanax been passing out and falling was seen here on 01/[address] and C-spine negative patient been falling multiple times since then in last 2 weeks she fell 4 times now complaining of headache. Patient feel depressed recent in the family, no chest pain or palpitation Related Data Home Medications Medication Instructions Recorded Confirmed alprazolam 1 mg tablet 1 mg PO TID PRN anxiety 09/01/22 09/26/22 escitalopram oxalate 20 mg tablet 20 mg PO DAILY 09/01/22 09/26/22 estradiol 0.5 mg tablet 0.5 mg PO DAILY 09/01/22 09/26/22 fentanyl 75 mcg/hr transdermal 75 mcg topical 09/01/22 patch levothyroxine 150 mcg tablet 150 mcg PO DAILY 09/01/22 09/26/22 oxycodone 30 mg tablet 60 mg PO Q6H 09/01/22 09/26/22 sumatriptan succinate 100 mg tablet 100 mg PO NEEDED headache 09/23/22 09/26/22 Previous Rx's Medication Instructions Recorded bisacodyl 5 mg tablet,delayed 10 mg (2 x 5 mg) PO ONCE 01/10/23 release (Dulcolax (bisacodyl)) colonoscopy prep 1 day #2 tabs docusate sodium 100 mg capsule 200 mg (2 x 100 mg) PO BEDTIME #60 01/10/23 (Colace) caps polyethylene glycol 3350 17 17 g PO DAILY #510 grams 01/10/23 gram/dose oral powder (Miralax) polyethylene glycol 3350 17 238 g PO ONCE 1 day #238 grams 01/10/23 gram/dose oral powder (Miralax) methylcellulose (laxative) 500 mg 500 mg PO TID #90 tabs 04/20/23 tablet (Citrucel) metoclopramide HCl 10 mg tablet 10 mg PO Q6H PRN Headache nausea 01/17/24 (Reglan) and vomiting #14 tabs cefuroxime axetil 250 mg tablet 250 mg PO BID 7 days #14 tabs 01/23/24 Allergies Allergy/AdvReac Type Severity Reaction Status Date / Time minocycline Allergy Unknown Unknown Verified 01/23/24 19:17 Sulfa (Sulfonamide Allergy Unknown RASH Verified 01/23/24 19:17 Antibiotics) [SULFA (SULFONAMIDE ANTIBIOTICS)] tetracycline [TETRACYCLINE] Allergy Unknown PANCREATITI Verified 01/23/24 19:17 S Review of Systems 2 Review of Systems: Yes all other systems are reviewed and are negative [facility] Past Medical History Medical History Accidental overdose History of chronic pain Rupture of flexor tendon of left hand Well woman exam Hypothyroidism Surgical History H/O wrist surgery History of back surgery Hx of section H/O foot surgery Family History Family History Other No family history of coronary artery disease Social History Social History Household Members: Friend(s) Housing: House Patient Tobacco Use Status: Never used Tobacco Advance Directives: No Advance Directives Information Provided: No Current occupational status: disabled Current occupation: rt hand Physical Exam ED Vital Signs: Vital Signs - 24 hr 01/23/24 19:18 01/23/24 21:35 01/23/24 22:08 Temperature 98.3 F 97.9 F Pulse Rate 71 66 66 Respiratory Rate 14 18 Blood Pressure 168/96 H 163/90 H 140/81 H Pulse Oximetry 98 99 Oxygen Delivery Method Room Air Room Air 01/23/24 22:10 01/23/24 22:11 Temperature Pulse Rate 75 80 Respiratory Rate Blood Pressure 155/67 H 157/96 H Pulse Oximetry Oxygen Delivery Method BMI result Body Mass Index 26.5 Appearance: Alert. Oriented X3. No acute distress. Normal orthostatics Eyes: PERRLA, No Nystagmus HEENT: Pharynx normal. Oral Mucosa moist atraumatic normocephalic Neck: Normal inspection. Neck supple. No midline tenderness CVS: Normal heart rate and rhythm. Pulses normal. Respiratory: No respiratory distress. Equal air entry bilateral, no wheezing/rales/rhonchi Abdomen: Soft and nontender. Bowel sounds are present, no mass palpable, no CVA tenderness Skin: Skin warm and dry. Normal skin color. Normal skin turgor. Extremities: No lower extremity edema. No calf tenderness Neuro: Oriented X 3. No motor deficit. No sensory deficit.No cerebellar signs , cranial nerves II-XII intact Course Course Course Narrative: This is a rapid medical exam: Additional HPI, ROS, PE not included below will be deferred to primary provider. Patient is a 63-year-old female with chronic back pain on opiates, hypothyroid, migraines presenting to the emergency department with complaint of severe headache, multiple episodes of syncope, and anxiety since hitting her head 10 days ago. States she was seen here twice for the same, also seen at [facility], had CT scans which were negative but reports multiple episodes of syncope with head strike since. Has been managing her anxiety with Benadryl. Patient with pressured speech in triage. Denies any vomiting. Plan: CT head given ongoing syncope with head strikes, EKG Medical Decision Making Medical Decision Making [facility] Narrative: Patient with polypharmacy taking oxycodone 10 mg 6 times fentanyl patch 75 mcg Benadryl and Xanax not eating well falling frequently likely medication side. CT scan of the head is negative labs are stable patient advised to not take all those medication follow with pain clinic and psychiatrist Differential Diagnosis Differential Diagnoses: The differential diagnosis associated with the presentation includes Lab Data [facility] Lab Attestation statement: I reviewed the patient's lab results. 01/23/24 19:51 01/23/24 19:51 Labs: Lab Results 01/23/24 Range/Units 19:51 WBC 10.5 (4.8-10.8) X10*3/uL RBC 4.37 (4.20-5.50) X10*6/uL Hgb 13.7 (12.0-16.0) g/dl Hct 40.2 (37.0-47.0) % MCV 92.0 (80.0-98.0) fL MCH 31.4 (27.0-33.0) pg MCHC 34.1 (31.0-35.0) g/dl RDW 12.6 (11.0-16.0) % Plt Count 292 D (160-400) X10*3/uL MPV 9.6 (9.4-12.3) fL Immature Gran % (Auto) 0.4 (0.0-0.4) % Neut % (Auto) 79.3 H (45-73) % Lymph % (Auto) 15.4 L (20-40) % [place] % (Auto) 4.2 (2-11) % Eos % (Auto) 0.3 (0-4) % Baso % (Auto) 0.4 (0-2) % Lymph # (Auto) 1.6 (1.2-4.9) X10*3/uL [place] # (Auto) 0.4 (0.1-1.2) X10*3/uL Eos # (Auto) 0.0 (0.0-0.4) X10*3/uL Baso # (Auto) 0.0 (0.0-0.2) X10*3/uL Abs Immat Gran (auto) 0.04 H (0.00-0.03) X10*3/uL Absolute Neuts (auto) 8.4 H (2.0-8.3) x10*3/uL Absolute Nucleated RBC 0.000 (0.0-0.012) X10*3/uL Nucleated RBC % (auto) 0.0 (0.0-0.2) /100WBC Sodium 143 (135-145) mmol/L Potassium 4.2 D (3.3-5.1) mmol/L Chloride 102 (96-108) mmol/L Carbon Dioxide 30 H (22-29) mmol/L Anion Gap 15 (12-20) BUN 14 (9-16) mg/dL Creatinine 0.94 (0.5-1.4) mg/dL Estim Creat Clear Calc 64.8 Estimated GFR > 60 Random Glucose 126 H (60-115) mg/dL Calcium 10.2 (8.4-10.2) mg/dL Total Bilirubin 0.2 (0.0-1.0) mg/dL AST 29 (5-31) U/L ALT 26 (0-31) U/L Alkaline Phosphatase 123 H (39-117) U/L Total Protein 8.3 H (6.5-8.0) g/dL Albumin 4.6 (3.5-5.0) g/dL Independent Interpretation I performed an independent interpretation of an: EKG and CT Scan Interpretation: Normal sinus rhythm heart rate 75 beats per minute normal interval normal axis no acute ST T wave changes no acute ischemia Radiology Impression Discussion of test interpretation with radiology: I have reviewed the radiologist's reading. Discharge Plan Discharge Clinical Impression: Polypharmacy, Medication side effects Patient Disposition: Home, Self-Care Instructions: Adverse Drug Reaction (ED) Additional Instructions: Your passing out episodes is likely from too many medication you taking for pain and anxieties/sleep Do not combine all medications same time Drink plenty of fluids and have food Follow-up with a psychiatrist and pain clinic Your CT scan of the head is negative and labs are stable Prescriptions: No Action Citrucel 500 mg tablet 500 mg PO TID Qty: 90 5RF metoclopramide HCl [Reglan] 10 mg tablet 10 mg PO Q6H PRN (Reason: Headache nausea and vomiting) Qty: 14 0RF cefuroxime axetil 250 mg tablet 250 mg PO BID 7 Days Qty: 14 0RF levothyroxine 150 mcg tablet 150 mcg PO DAILY alprazolam 1 mg tablet 1 mg PO TID PRN (Reason: anxiety) Rx Instructions: TOOK 2MG THIS AM oxycodone 30 mg tablet 60 mg PO Q6H fentanyl 75 mcg/hr patch 72 hour 75 mcg topical Rx Instructions: every 48 hours every two days escitalopram oxalate 20 mg tablet 20 mg PO DAILY estradiol 0.5 mg tablet 0.5 mg PO DAILY sumatriptan succinate 100 mg tablet 100 mg PO NEEDED docusate sodium [Colace] 100 mg capsule 200 mg PO BEDTIME Qty: 60 5RF bisacodyl [Dulcolax (bisacodyl)] 5 mg tablet,delayed release (DR/EC) 10 mg PO ONCE 1 Days Qty: 2 0RF Rx Instructions: Take 2 tablets by mouth at 12:00pm the day before your procedure. polyethylene glycol 3350 [Miralax] 17 gram/dose powder 238 g PO ONCE 1 Days Qty: 238 0RF Rx Instructions: Take as directed by mouth the day before your procedure. polyethylene glycol 3350 [Miralax] 17 gram/dose powder 17 g PO DAILY Qty: 510 6RF
[2024-01-23 19:18] VITALS: BP 168/96; PULSE 71; RESP 14; TEMP 36.8; O2SAT 98; BMI 26.5
--- NOTE | 2024-01-23 19:23 | ECG_ITS ---
Test Reason : HEADACHE Blood Pressure : / mmHG Vent. Rate : 075 BPM Atrial Rate : 075 BPM P-R Int : 162 ms QRS Dur : 082 ms QT Int : 396 ms P-R-T Axes : 020 071 039 degrees QTc Int : 442 ms Normal sinus rhythm Normal ECG When compared with ECG of 17-JAN-2024 16:45, No significant change was found Referred By: Isabell Cartwright Electronically Signed By:DOMINIK SAMAYOA
[2024-01-23 19:56] LABS: MANUAL DIFF FLAG NO
[2024-01-23 20:02] LABS: Basophils Percent Auto 0.4 % (0-2); Eosinophils Percent Auto 0.3 % (0-4); Hematocrit 40.2 % (37.0-47.0); Hemoglobin 13.7 g/dl (12.0-16.0); Imm Gran Abs Auto 0.04 X10*3/uL (0.00-0.03); Imm Gran Pct Auto 0.4 % (0.0-0.4); Lymphocytes Absolute Auto 1.6 X10*3/uL (1.2-4.9); Lymphocytes Percent Auto 15.4 % (20-40); Mean Corpuscular HGB Conc 34.1 g/dl (31.0-35.0); Mean Corpuscular Hemoglobin 31.4 pg (27.0-33.0); Mean Platelet Volume 9.6 fL (9.4-12.3); Monocytes Absolute Auto 0.4 X10*3/uL (0.1-1.2); Monocytes Percent Auto 4.2 % (2-11); Neutrophils Absolute Auto 8.4 x10*3/uL (2.0-8.3); Neutrophils Percent Auto 79.3 % (45-73); Platelet Count 292 X10*3/uL (160-400); Red Blood Count 4.37 X10*6/uL (4.20-5.50); Red Cell Distribution Width 12.6 % (11.0-16.0); White Blood Count 10.5 X10*3/uL (4.8-10.8)
[2024-01-23 20:13] LABS: Alanine Aminotransferase 26 U/L (0-31); Albumin Level 4.6 g/dL (3.5-5.0); Alkaline Phosphatase 123 U/L (39-117); Anion Gap 15 (12-20); Aspartate Amino Transferase 29 U/L (5-31); Bilirubin Total 0.2 mg/dL (0.0-1.0); Blood Urea Nitrogen 14 mg/dL (9-16); Calcium 10.2 mg/dL (8.4-10.2); Carbon Dioxide 30 mmol/L (22-29); Chloride 102 mmol/L (96-108); Creatinine Clr Calc Pharmacy 64.8; Estimated Glomerular Filt Rate > 60; Glucose Random 126 mg/dL (60-115); Potassium 4.2 mmol/L (3.3-5.1); Sodium 143 mmol/L (135-145); Total Protein 8.3 g/dL (6.5-8.0)
[2024-01-23 21:35] VITALS: BP 163/90; PULSE 66; RESP 18; TEMP 36.6; O2SAT 99
--- NOTE | 2024-01-23 21:45 | PC.NURSE ---
Dr. Marquez at bedside for primary ED evaluation.
[2024-01-23 22:08] VITALS: BP 140/81; PULSE 66
[2024-01-23 22:10] VITALS: BP 155/67; PULSE 75
[2024-01-23 22:11] VITALS: BP 157/96; PULSE 80
== END 2024-01-23 23:14 | disposition home or self-care (01) ==
PROVIDERS: Registered Nurse Emergency; Emergency Provider Internal Medicine
DX: R55 Syncope and collapse (principal); R51.9 Headache, unspecified; F33.1 Major depressive disorder, recurrent, moderate; Z79.899 Other long term (current) drug therapy
CPT/HCPCS: 36415; 70450; 80053; 85025; 93005; 99284

== ENCOUNTER → 2024-01-23 19:23 | Outpatient (BNV) | payer MEDICARE, MEDICAID, SELFPAY | PROVIDERS: Emergency Provider Internal Medicine; Visit Provider Internal Medicine | DX: R94.31 Abnormal electrocardiogram [ECG] [EKG] (principal) | CPT/HCPCS: 93010 ==

== ENCOUNTER 2024-01-25 10:43 | Emergency (ER) | payer MEDICARE, MEDICAID, SELFPAY ==
--- NOTE | ~2024-01-25 | XR_ITS ---
EXAMINATION: XR CHEST CLINICAL INFORMATION: Pain COMPARISON: None available. TECHNIQUE: Frontal view of the chest was obtained. FINDINGS: Cardiac silhouette is normal in size. The lungs are well aerated. There is no lobar consolidation. No pleural effusion or pneumothorax. XR/XR chest 1V IMPRESSION: No acute pulmonary pathology.
--- NOTE | 2024-01-25 10:59 | ECG_ITS ---
Test Reason : chest pain Blood Pressure : / mmHG Vent. Rate : 069 BPM Atrial Rate : 069 BPM P-R Int : 156 ms QRS Dur : 084 ms QT Int : 394 ms P-R-T Axes : -03 076 036 degrees QTc Int : 422 ms Normal sinus rhythm Normal ECG When compared with ECG of 23-JAN-2024 19:30, No significant change was found Referred By: Generic ED Physician Electronically Signed By:DOMINIK SAMAYOA
[2024-01-25 11:11] VITALS: BP 141/86; BP 151/95; PULSE 64; PULSE 81; RESP 14; TEMP 36.9; O2SAT 96; O2SAT 99; BMI 26.9
--- NOTE | 2024-01-25 11:20 | PC.NURSE ---
a&ox4. vss and up to date. nsr on the cardiac rehab nurse. pt presents to the ED w/ 09/05 sternal chest pain. pt verbalizes pain radiates to the LUE. pt also verbalizes dizziness/lightheadedness. pt received sublingual nitroglycerin x 2 and 324mg of ASA upon EMS transport. EMS also placed an 18gIV in the left AC. labs obtained/sent to lab. pt states that she threw out her back and has a pinched nerve in her neck/back that has been lingering x 11 days. pt states that chest pain has been present since. no sob/wob noted. respirations even and unlabored. plan of care ongoing. call shapre placed within reach.
[2024-01-25 11:25] LABS: MANUAL DIFF FLAG NO
[2024-01-25 11:32] LABS: Basophils Absolute Auto 0.1 X10*3/uL (0.0-0.2); Basophils Percent Auto 0.5 % (0-2); Eosinophils Absolute Auto 0.1 X10*3/uL (0.0-0.4); Eosinophils Percent Auto 0.5 % (0-4); Hematocrit 36.2 % (37.0-47.0); Hemoglobin 12.6 g/dl (12.0-16.0); Imm Gran Abs Auto 0.02 X10*3/uL (0.00-0.03); Imm Gran Pct Auto 0.2 % (0.0-0.4); Lymphocytes Absolute Auto 1.5 X10*3/uL (1.2-4.9); Lymphocytes Percent Auto 15.9 % (20-40); Mean Corpuscular HGB Conc 34.8 g/dl (31.0-35.0); Mean Corpuscular Hemoglobin 31.1 pg (27.0-33.0); Mean Corpuscular Volume 89.4 fL (80.0-98.0); Mean Platelet Volume 9.4 fL (9.4-12.3); Monocytes Absolute Auto 0.6 X10*3/uL (0.1-1.2); Monocytes Percent Auto 6.2 % (2-11); Neutrophils Absolute Auto 7.3 x10*3/uL (2.0-8.3); Neutrophils Percent Auto 76.7 % (45-73); Platelet Count 270 X10*3/uL (160-400); Red Blood Count 4.05 X10*6/uL (4.20-5.50); Red Cell Distribution Width 12.7 % (11.0-16.0); White Blood Count 9.5 X10*3/uL (4.8-10.8)
[2024-01-25 11:42] LABS: Alanine Aminotransferase 22 U/L (0-31); Albumin Level 3.9 g/dL (3.5-5.0); Alkaline Phosphatase 102 U/L (39-117); Anion Gap 12 (12-20); Aspartate Amino Transferase 38 U/L (5-31); Bilirubin Total 0.4 mg/dL (0.0-1.0); Blood Urea Nitrogen 13 mg/dL (9-16); Calcium 9.9 mg/dL (8.4-10.2); Carbon Dioxide 24 mmol/L (22-29); Chloride 107 mmol/L (96-108); Creatinine Clr Calc Pharmacy 62.8; Estimated Glomerular Filt Rate > 60; Glucose Random 113 mg/dL (60-115); Potassium 4.4 mmol/L (3.3-5.1); Sodium 139 mmol/L (135-145); Total Protein 7.4 g/dL (6.5-8.0)
[2024-01-25 11:50] LABS: Troponin-I High Sensitivity < 2.7 ng/L (<3.5-17.0)
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
== END 2024-01-25 12:36 | disposition home or self-care (01) ==
PROVIDERS: Emergency Provider Emergency Medicine
DX: G89.4 Chronic pain syndrome (principal); Z79.891 Long term (current) use of opiate analgesic
CPT/HCPCS: 36415; 71045; 80053; 84484; 85025; 93005; 99283; 99285

== ENCOUNTER → 2024-01-25 10:59 | Outpatient (BNV) | payer MEDICARE, MEDICAID, SELFPAY | PROVIDERS: Emergency Provider Emergency Medicine; Visit Provider Internal Medicine | DX: R07.9 Chest pain, unspecified (principal) | CPT/HCPCS: 93010 ==

== ENCOUNTER 2024-04-17 15:25 | Outpatient (AMB) | payer MEDICARE, MEDICAID, SELFPAY ==
--- NOTE | 2024-04-17 15:25 | MHC.OFFVIS ---
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 No complaints. The patient gives a history of ovarian cyst Last Pap/HPV was negative in 09/17 Last Mammogram was BI-RADS 1 in 10/18 No previous screening Colonoscopy PFSH Medical History Accidental overdose History of chronic pain Rupture of flexor tendon of left hand Well woman exam Hypothyroidism Surgical History H/O wrist surgery History of back surgery Hx of section H/O foot surgery Family History Other No family history of coronary artery disease Social History Household Members: Friend(s) Housing: House Alcohol intake: current Alcohol intake frequency: a few times a week Patient Tobacco Use Status: Never used Tobacco Current occupational status: disabled Current occupation: rt hand Female Reproductive History Menstrual Age of Menarche: 13 Menopause type: natural Total pregnancies: 3 Full term: 3 Number of Living Children: 3 Date of last pap smear: 09/02/22 Date of Mammogram: 10/07/22 Review of Systems Const All systems reviewed & are unremarkable except as noted in HPI and below Card Reports as per HPI Resp Reports as per HPI GI Reports as per HPI and Reports no additional complaints Reports as per HPI Physical Exam Const General: cooperative, healthy appearing and comfortable Chest Chest palpation & inspection: normal inspection of the chest and normal palpation of entire chest wall Breast/axilla inspection: normal inspection of the breasts and normal inspection of the axillae Breast/axilla palpation: normal palpation of the breasts, normal palpation of the axillae and no axillary lymphadenopathy Resp Effort & Inspection: normal respiratory effort Auscultation: clear to auscultation bilaterally Percussion: percussion normal Cardio Palpation: normal PMI Rate: regular rate Rhythm: regular rhythm Heart sounds: no murmurs and no rubs Peripheral pulses: Peripheral pulses 2+ throughout GI Inspection: Yes normal to inspection Palpation (GI): Soft to palpation, nontender, no guarding, not rigid and No hepatosplenomegaly present Percussion: Yes normal to percussion Auscultation: normal bowel sounds Rectal Exam - Female: deferred General: Yes bladder normal to palpation External Female Exam: No lesion Speculum Exam - Vagina: normal appearance of the vagina, normal palpation, normal vaginal discharge and not erythematous Speculum Exam - Cervix: normal appearance of the cervix and normal palpation Bimanual exam- vagina & uterus: normal bimanual exam, normal palpation, uterine size normal, bladder normal to palpation, consistency normal and normal palpation Bimanual Exam- Adnexa, other: normal adnexae, no masses and no tenderness Assessment & Plan Assessment & Plan (1) Well woman exam: Code(s): Z01.419 - Encounter for gynecological examination (general) (routine) without abnormal findings Category: Medical Plan: Co testing not indicated this year. Counseled the patient about the recommended dietary allowance of 1200 mg of Calcium & 600 IU of vitamin D. Mammogram ordered. The patient was referred to GI for screening colonoscopy . The patient was instructed to perform monthly self-breast exams and schedule annual exam in a year. All questions answered and the patient verbalized understanding. (2) Ovarian cyst: Code(s): N83.209 - Unspecified ovarian cyst, unspecified side Category: Medical Plan: Will order ultrasound. Instructions given the patient to schedule a 2 week ultrasound follow-up appointment. Orders: Orders MM tomosynthesis screening BI Today Z12.31 - Encounter for screening mammogram for malignant neoplasm of breast US pelvic and transvaginal Today N83.209 - Unspecified ovarian cyst, unspecified side Referrals Gastroenterology Referral Z12.11 - Encounter for screening for malignant neoplasm of colon Coding Level of Care Code Est Pt Prev Care 40-64y(12817) Diagnoses Well woman exam Z01.419 Ovarian cyst N83.209
[2024-04-17 15:26] VITALS: BP 126/60; BMI 28.5
== END 2024-04-18 07:17 | disposition home or self-care (01) ==
LOC: HO.HWS 15:25
PROVIDERS: Visit Provider Obstetrics & Gynecology
DX: Z01.419 Encounter for gynecological examination (general) (routine) without abnormal findings (principal); N83.209 Unspecified ovarian cyst, unspecified side
CPT/HCPCS: G0101

== ENCOUNTER → 2024-04-17 15:25 | Outpatient (BNVA) | payer MEDICARE, MEDICAID, SELFPAY | PROVIDERS: Visit Provider Obstetrics & Gynecology | DX: Z01.419 Encounter for gynecological examination (general) (routine) without abnormal findings (principal); N83.209 Unspecified ovarian cyst, unspecified side | CPT/HCPCS: G0101 ==

== ENCOUNTER 2024-04-24 14:23 | Outpatient (REF) | payer MEDICARE, MEDICAID, SELFPAY ==
--- NOTE | ~2024-04-24 | US_ITS ---
EXAMINATION: US PELVIS CLINICAL INFORMATION: Cyst of ovary, postmenopausal, right pelvic pain. COMPARISON: CT abdomen and pelvis 12/08/2022. Pelvic ultrasound 02/13/2016. TECHNIQUE: Ultrasound of the pelvis is performed using both transabdominal and transvaginal transducers along with Doppler. Transvaginal imaging is performed due to inadequate visualization transabdominally. FINDINGS: The uterus measures 7.5 x 2.8 x 3.9 cm and is anteverted. Endometrial thickness is 2 mm. No significant free fluid. A 1.1 x 0.6 x 0.7 cm fibroid. Previous exam demonstrated a 1.0 x 1.1 x 1.4 cm fibroid. Right ovary poorly visualized and seen only on transabdominal ultrasound images measuring 2.1 x 1.1 x 1.1 cm, volume 1.3 mL. Left ovary was better visualized on transabdominal ultrasound images and measures 2.7 x 1.4 x 1.6 cm, volume 3.2 mL. Left ovary is grossly unremarkable on limited images. US/US pelvic and transvaginal IMPRESSION: 1. A 1.1 cm fibroid. 2. Endometrial thickness is 2 mm. 3. Limited visualization of the bilateral ovaries due to bowel gas.
== END 2024-04-24 14:24 | disposition home or self-care (01) ==
LOC: HO.US 14:23
PROVIDERS: Visit Provider Obstetrics & Gynecology
DX: N83.209 Unspecified ovarian cyst, unspecified side (principal)
CPT/HCPCS: 76830; 76856

== ENCOUNTER 2024-06-13 08:25 | Outpatient (AMB) | payer MEDICARE, MEDICAID, SELFPAY ==
--- NOTE | 2024-06-13 08:25 | MHC.OFFVIS ---
Intake Visit Reasons: U/S results Allergies minocycline Allergy (Unknown, Verified 04/17/24 15:31) Unknown Sulfa (Sulfonamide Antibiotics) [SULFA (SULFONAMIDE ANTIBIOTICS)] Allergy (Unknown, Verified 04/17/24 15:31) RASH tetracycline [TETRACYCLINE] Allergy (Unknown, Verified 04/17/24 15:31) PANCREATITIS HPI Comments Details: The patient is scheduled tele health visit for follow-up pelvic ultrasound done on 05/08/24 regarding history of ovarian cyst. No complaints. Pelvic ultrasound showed the following: The uterus measures 7.5 x 2.8 x 3.9 cm and is anteverted. Endometrial thickness is 2 mm. No significant free fluid. A 1.1 x 0.6 x 0.7 cm fibroid. Previous exam demonstrated a 1.0 x 1.1 x 1.4 cm fibroid. Right ovary poorly visualized and seen only on transabdominal ultrasound images measuring 2.1 x 1.1 x 1.1 cm, volume 1.3 mL. Left ovary was better visualized on transabdominal ultrasound images and measures 2.7 x 1.4 x 1.6 cm, volume 3.2 mL. Left ovary is grossly unremarkable on limited images PFSH Medical History Accidental overdose History of chronic pain Rupture of flexor tendon of left hand Well woman exam Hypothyroidism Surgical History H/O wrist surgery History of back surgery Hx of section H/O foot surgery Family History Other No family history of coronary artery disease Social History Household Members: Friend(s) Housing: House Alcohol intake: current Alcohol intake frequency: a few times a week Patient Tobacco Use Status: Never used Tobacco Current occupational status: disabled Current occupation: rt hand Female Reproductive History Menstrual Age of Menarche: 13 Review of Systems Const All systems reviewed & are unremarkable except as noted in HPI and below Reports as per HPI and Reports no additional complaints GI Reports no additional complaints Reports no additional complaints Telehealth Telehealth Telehealth Platform: Telephone Location of provider rendering services: practice address Location of patient: address on file Patient Identification confirmed using: Name, : Yes Telehealth method: video Patient verbally consented to treatment: Yes Patient verbally consented to billing insurance company: Yes Patient informed of any privacy concerns related to visit: Yes Assessment & Plan Assessment & Plan (1) Ovarian cyst: Code(s): N83.209 - Unspecified ovarian cyst, unspecified side Category: Medical Plan: Discussed with the patient the above findings on pelvic ultrasound and the limited visualization of the ovaries on ultrasound imaging. Recommended repeat pelvic ultrasound for better visualization of both ovaries and rule out ovarian pathology. Order placed, instructions given the patient to schedule an ultrasound and a follow-up appointment afterwards. 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 Will repeat pelvic ultrasound periodically. Instructions given to patient to call in case any of the following occurs: pressure symptoms, abnormal uterine bleeding, pelvic pain; and to schedule a future office follow-up appointment for reassessment and to order a repeat ultrasound . All questions answered, the patient verbalized understanding and agreed with the plan . Orders: Orders US pelvic and transvaginal Today N83.209 - Unspecified ovarian cyst, unspecified side Coding Level of Care Code Est Pt Level 3 (44789) Diagnoses Ovarian cyst N83.209 Uterine myoma D25.9
== END 2024-06-13 14:59 | disposition home or self-care (01) ==
LOC: HO.HWS 08:25
PROVIDERS: PCP Nurse Practitioner Adult Health; Visit Provider Obstetrics & Gynecology
DX: N83.209 Unspecified ovarian cyst, unspecified side (principal); D25.9 Leiomyoma of uterus, unspecified
CPT/HCPCS: 99213

== ENCOUNTER → 2024-06-13 08:25 | Outpatient (BNVA) | payer MEDICARE, MEDICAID, SELFPAY | PROVIDERS: PCP Nurse Practitioner Adult Health; Visit Provider Obstetrics & Gynecology | DX: D25.9 Leiomyoma of uterus, unspecified (principal); Z87.42 Personal history of other diseases of the female genital tract | CPT/HCPCS: 99212 ==

== ENCOUNTER 2025-04-01 14:38 | Outpatient (AMB) | payer MEDICARE, MEDICAID, SELFPAY ==
--- NOTE | 2025-04-01 14:38 | A.OFFVIS_ITS ---
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 04/19 pelvic ultrasound showed limited visualization of the ovaries, recommendation was to repeat pelvic ultrasound which was ordered but the patient never had it done Last mammogram in 10/18 was BI-RADS 1 [facility] Medical History Accidental overdose History of chronic pain Rupture of flexor tendon of left hand Well woman exam Hypothyroidism Surgical History H/O wrist surgery History of back surgery Hx of section H/O foot surgery Family History Other No family history of coronary artery disease Social History Household Members: Friend(s) Housing: House Alcohol intake: current Alcohol intake frequency: a few times a week Patient Tobacco Use Status: Never used Tobacco Current occupational status: disabled Current occupation: rt hand Female Reproductive History Menstrual Age of Menarche: 13 Physical Exam Chest Breast/axilla inspection: inspection of breasts abnormal (Right breast within normal, left breast 2 cm lump 6 cm from the nipple at 1) Assessment & Plan Assessment & Plan (1) Ovarian cyst: Code(s): N83.209 - Unspecified ovarian cyst, unspecified side Category: Medical Plan: Instructions given the patient to schedule pelvic ultrasound and a follow-up appointment within 2 weeks. All questions answered, the patient verbalized understanding and agreed with the plan (2) Breast lump on left side at 1 o'clock position: Comment: 2 cm in size, 6 cm from the nipple Code(s): N63.21 - Unspecified lump in the left breast, upper outer quadrant Category: Medical Plan: Discussed with the patient the finding on Breast exam (breast lump) .The differential diagnosis includes but not limited to lump/cyst/pre cancer/cancer or dense breast tissue. The work up includes breast US and diagnostic mammogram and referred the patient for surgical breast consult. Instructed the patient to call our office back in case a referral appointment is not scheduled, missed or canceled so that we will assist on rescheduling another appointment, the patient verbalized understanding agreed with the plan. Orders: Orders MM tomosynthesis diagnostic BI Today N63.21 - Unspecified lump in the left breast, upper outer quadrant US breast LT limited Today N63.21 - Unspecified lump in the left breast, upper outer quadrant Referrals General Surgery Referral N63.21 - Unspecified lump in the left breast, upper outer quadrant Coding Level of Care Code Est Pt Level 3 (51408) Diagnoses Ovarian cyst N83.209 Breast lump on left side at 1 o'clock position N63.21
[2025-04-01 14:40] VITALS: BMI 28.5
--- OUTSIDE RECORDS SUMMARY | 2025-04-01 15:49 | XMS_ITS | Patient Health Record ---
Author Organization [employer] [facility] Address [address] [place] [address] Care Team Providers Care Bell Cleaner Name Role Phone Silas ENVIRONMENTAL TECHNICAL OFFICER, Joana Primary Care Provider Unava page SHIRA RODRIGUEZA Unavailable [phone] Reason For Referral No Information Problems Problem Type SNOMED Code ICD Code Onset Dates Problem Status W/U Status Risk Notes Problem Hypothyroidism (78485969) Hypothyroidism, unspecified (E03.9) Active confirmed Problem Recurrent major depression (60969442) Major depressive disorder, recurrent, unspecified (F33.9) Active confirmed Problem Migraine without aura, not refractory (disorder) (132954610) Migraine, unspecified, not intractable, without status migrainosus (G43.909) Active confirmed Plan Of Treatment Pending Test Test Name Order Date MM Digital Screening Mammogram 3D 2021 MM Digital Screening Mammogram 3D 2022 Insurance Providers Payer Name Payer Address Payer Phone Subscriber Number Group Number Insured Name Patient Relationship to Insured Coverage Start Date Coverage End Date MEDICARE [address] [place] [id number] IRAJ ROMANO Self - patient is the insured Medical (General) History Medical History History ICD Code Hypothyroidism, unspecified E03.9 Major depressive disorder, recurrent, un specified F33.9 Migraine, unspecified, not intractable, without status migrainosus 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
== END 2025-04-01 15:36 | disposition home or self-care (01) ==
LOC: HO.HWS 14:38
PROVIDERS: PCP Nurse Practitioner Adult Health; Visit Provider Obstetrics & Gynecology
DX: N83.209 Unspecified ovarian cyst, unspecified side (principal); N63.21 Unspecified lump in the left breast, upper outer quadrant
CPT/HCPCS: 99213

== ENCOUNTER → 2025-04-01 14:38 | Outpatient (BNVA) | payer MEDICARE, MEDICAID, SELFPAY | PROVIDERS: PCP Nurse Practitioner Adult Health; Visit Provider Obstetrics & Gynecology | DX: N64.4 Mastodynia (principal); N83.209 Unspecified ovarian cyst, unspecified side; N63.21 Unspecified lump in the left breast, upper outer quadrant | CPT/HCPCS: 99212 ==

== ENCOUNTER 2025-04-29 16:00 | Outpatient (REF) | payer MEDICARE, MEDICAID, SELFPAY ==
--- NOTE | ~2025-04-29 | US_ITS ---
EXAMINATION: US PELVIS CLINICAL INFORMATION: Unspecified ovarian cyst. Postmenopausal COMPARISON: Ultrasound pelvis 04/24/2024 TECHNIQUE: Ultrasound of the pelvis is performed using both transabdominal and transvaginal transducers along with Doppler. Transvaginal imaging is performed due to inadequate visualization transabdominally. FINDINGS: Uterus: The uterus is anteverted , anteflexed and measures 7.1 x 2.4 x 3.7 cm. The double wall endometrial thickness is 0.3 cm. There is minimal fluid in the endometrial canal The uterus is smooth in contour and has normal myometrial echogenicity. There is a hypoechoic lesion left uterine body measuring 0.7 x 0.8 x 0.7 cm. Previously it measured 1.1 x 0.6 x 0.7 cm Adnexa: Both ovaries are visualized. There is normal color flow to the adnexa. There is no ovarian torsion. There is no pelvic ascites or fluid collection. Right ovary measures 1.6 x 1.2 x 1.3 cm. Volume 1.3 mL. There is anechoic simple cyst measuring 1.0 x 0.9 x 0.9 cm. As per patient's history re collection patient has cyst for 30 years. Left ovary measures 1.3 x 1.0 x 1.2 cm. Volume 0.8 mL There is no free fluid in the cul-de-sac. US/US pelvic and transvaginal IMPRESSION: Small uterine fibroid. Normal endometrial thickening with minimal fluid in the endometrial canal. Simple cyst measuring 1 cm right ovary. Electronically signed by: Myron Sherwood MD 04/30/2025 07:13 AM EDT
--- OUTSIDE RECORDS SUMMARY | 2025-04-29 17:05 | XMS_ITS | Patient Health Record ---
Author Organization [employer] [facility] Address [address] [place] [address] Care Team Providers Care Heel Sorter Name Role Phone Silas AFTER SCHOOL PROGRAM COORDINATOR, Joana Primary Care Provider Unava ilmilena SHIRA RODRIGUEZA Unavailable [phone] Reason For Referral No Information Problems Problem Type SNOMED Code ICD Code Onset Dates Problem Status W/U Status Risk Notes Problem Hypothyroidism (85947581) Hypothyroidism, unspecified (E03.9) Active confirmed Problem Major depressive disorder, recurrent, unspecified (F33.9) Active confirmed Problem Migraine without aura, not refractory (disorder) (473600737) Migraine, unspecified, not intractable, without status migrainosus (G43.909) Active confirmed Plan Of Treatment Pending Test Test Name Order Date MM Digital Screening Mammogram 3D 2021 MM Digital Screening Mammogram 3D 2022 Insurance Providers Payer Name Payer Address Payer Phone Subscriber Number Group Number Insured Name Patient Relationship to Insured Coverage Start Date Coverage End Date MEDICARE [address] [facility] [place] [id number] IRAJ ROMANO Self - patient is the insured Medical (General) History Medical History History ICD Code Hypothyroidism, unspecified E03.9 Major depressive disorder, recurrent, un specified F33.9 Migraine, unspecified, not intractable, without status migrainosus 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
== END 2025-04-29 16:01 | disposition home or self-care (01) ==
LOC: HO.US 16:00
PROVIDERS: PCP Nurse Practitioner Family; Visit Provider Obstetrics & Gynecology
DX: N83.209 Unspecified ovarian cyst, unspecified side (principal)
CPT/HCPCS: 76830; 76856

== ENCOUNTER → 2025-04-29 16:02 | Outpatient (BNV) | payer MEDICARE, MEDICAID, SELFPAY | PROVIDERS: PCP Nurse Practitioner Family; Visit Provider Radiology Diagnostic Radiology | DX: D25.9 Leiomyoma of uterus, unspecified (principal); N83.291 Other ovarian cyst, right side | CPT/HCPCS: 76830; 76856 ==

== ENCOUNTER 2025-05-14 14:09 | Outpatient (AMB) | payer MEDICARE, MEDICAID, SELFPAY ==
--- NOTE | 2025-05-14 14:14 | MHC.OFFVIS ---
Intake Visit Reasons: Ultrasound follow up Accompanied by: Self / Same As Patient Allergies minocycline Allergy (Unknown, Verified 05/14/25 14:14) Unknown Sulfa (Sulfonamide Antibiotics) (SULFA (SULFONAMIDE ANTIBIOTICS)) Allergy (Unknown, Verified 05/14/25 14:14) RASH tetracycline (TETRACYCLINE) Allergy (Unknown, Verified 05/14/25 14:14) PANCREATITIS HPI Comments Details: Presenting for ultrasound follow-up which showed the following: Uterus: The uterus is anteverted , anteflexed and measures 7.1 x 2.4 x 3.7 cm. The double wall endometrial thickness is 0.3 cm. There is minimal fluid in the endometrial canal The uterus is smooth in contour and has normal myometrial echogenicity. There is a hypoechoic lesion left uterine body measuring 0.7 x 0.8 x 0.7 cm. Previously it measured 1.1 x 0.6 x 0.7 cm Adnexa: Both ovaries are visualized. There is normal color flow to the adnexa. There is no ovarian torsion. There is no pelvic ascites or fluid collection. Right ovary measures 1.6 x 1.2 x 1.3 cm. Volume 1.3 mL. There is anechoic simple cyst measuring 1.0 x 0.9 x 0.9 cm. As per patient's history re collection patient has cyst for 30 years. Left ovary measures 1.3 x 1.0 x 1.2 cm. Volume 0.8 mL There is no free fluid in the cul-de-sac. COUNT INCLUDES THE [facility] Medical History Accidental overdose History of chronic pain Rupture of flexor tendon of left hand Well woman exam Hypothyroidism Surgical History H/O wrist surgery History of back surgery Hx of section H/O foot surgery Family History Other No family history of coronary artery disease Social History Household Members: Friend(s) Housing: House Alcohol intake: current Alcohol intake frequency: a few times a week Patient Tobacco Use Status: Never used Tobacco Current occupational status: disabled Current occupation: rt hand Female Reproductive History Menstrual Age of Menarche: 13 Review of Systems Const All systems reviewed & are unremarkable except as noted in HPI and below Reports as per HPI and Reports no additional complaints GI Reports no additional complaints Reports no additional complaints Assessment & Plan Assessment & Plan (1) Ovarian cyst: Code(s): N83.209 - Unspecified ovarian cyst, unspecified side Category: Medical Plan: Discussed with the patient the ovarian cyst by ultrasound. Discussed with the patient the Ultrasound findings, the main limitation of transvaginal ultrasonography alone as a diagnostic tool to distinguish benign from malignant masses relates to its lack of specificity and low positive predictive value for cancer. The differential diagnosis discussed with the patient includes the following but not limited to: benign and malignant gynecological and non-gynecological causes. Serum tumor marker CA 125 wnl Discussed with the patient that CA 125 is a protein associated with epithelial ovarian malignancies, but also frequently expressed at lower levels by nonmalignant tissue. Normal CA 125 levels can be found in ovarian cancer patients. Elevation of CA 125 levels may occur in nonmalignant gynecologic conditions, and in non-gynecologic cancers, It is most useful in postmenopausal women and in identifying non mucinous epithelial cancer. The CA 125 level is elevated in 80% of patients with epithelial ovarian cancer but in only 50% of patients with stage I disease. The overall sensitivity of CA 125 testing in distinguishing benign from malignant adnexal masses reportedly ranges from 61% to 90%; specificity ranges from 71% to 93%, positive predictive value ranges from 35% to 91%, and negative predictive value ranges from 67% to 90%. Discussed with the patient options of treatment , in case CA 125 is not elevated, including laparoscopy ovarian salpingo-oophorectomy vs. expectant management with repeat US in repeating pelvic US in 6 months from previous US. If the ovarian cyst is persistent larger and / or changes in Ultrasound appearance & became complex looking, or higher CA 125 will refer to gynecologic Oncology. All pros, cons, risks and benefits of each approach were discussed with the patient including but not limited to a delay in the diagnosis and treatment of ovarian cancer affecting the prognosis; The patient decided to go ahead with expectant management. All questions were answered & the patient verbalized understanding and agreed with the plan (2) Uterine myoma: Code(s): D25.9 - Leiomyoma of uterus, unspecified Category: Medical Plan: Discussed with the patient the findings on pelvic ultrasound & the risk of myosarcoma; in addition reviewed with the patient that malignancy and pre malignancy cannot be ruled out without hysterectomy for pathological evaluation ; furthermore, explained to the patient the limitation of pelvic ultrasound and endometrial biopsy in the setting. Discussed with the patient the options of treatment including expectant management versus hysterectomy; the pros and cons, risks benefits of each approach were discussed with the patient including the fact that in cases of myosarcoma, surgical treatment can lead to early diagnosis and positively affects the prognosis; after further discussion, the patient decided to proceed with expectant management. Will repeat pelvic ultrasound periodically. Instructions given to patient to call in case any of the following occurs: pressure symptoms, abnormal uterine bleeding, pelvic pain; and to schedule a six-months pelvic ultrasound (order placed) and a follow-up appointment . All questions answered, the patient verbalized understanding and agreed with the plan . Orders: Orders US pelvic and transvaginal 6 Months D25.9 - Leiomyoma of uterus, unspecified, N83.209 - Unspecified ovarian cyst, unspecified side CA-125 Today N83.209 - Unspecified ovarian cyst, unspecified side Coding Level of Care Code Est Pt Level 3 (26787) Diagnoses Ovarian cyst N83.209 Uterine myoma D25.9
--- OUTSIDE RECORDS SUMMARY | 2025-05-14 16:15 | XMS_ITS | Patient Health Record ---
Author Organization [employer] [facility] Address [address] [place] [address] Care Team Providers Care Php Lamp Developer Name Role Phone Silas BEATER TENDER, Joana Primary Care Provider Unava ilSHIRA CaoA Unavailable [phone] Reason For Referral No Information Problems Problem Type SNOMED Code ICD Code Onset Dates Problem Status W/U Status Risk Notes Problem Hypothyroidism, unspecified (E03.9) Active confirmed Problem Recurrent major depression (53158976) Major depressive disorder, recurrent, unspecified (F33.9) Active confirmed Problem Migraine without aura, not refractory (disorder) (061790323) Migraine, unspecified, not intractable, without status migrainosus (G43.909) Active confirmed Plan Of Treatment Pending Test Test Name Order Date MM Digital Screening Mammogram 3D 2021 MM Digital Screening Mammogram 3D 2022 Insurance Providers Payer Name Payer Address Payer Phone Subscriber Number Group Number Insured Name Patient Relationship to Insured Coverage Start Date Coverage End Date MEDICARE [address] [place] [id number] IRAJ ROMANO Self - patient is the insured Medical (General) History Medical History History ICD Code Hypothyroidism, unspecified E03.9 Major depressive disorder, recurrent, un specified F33.9 Migraine, unspecified, not intractable, without status migrainosus 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
== END 2025-05-14 14:49 | disposition home or self-care (01) ==
PROVIDERS: PCP Nurse Practitioner Family; Visit Provider Obstetrics & Gynecology
DX: N83.209 Unspecified ovarian cyst, unspecified side (principal); D25.9 Leiomyoma of uterus, unspecified
CPT/HCPCS: 99213

== ENCOUNTER → 2025-05-14 14:09 | Outpatient (BNVA) | payer MEDICARE, MEDICAID, SELFPAY | PROVIDERS: PCP Nurse Practitioner Family; Visit Provider Obstetrics & Gynecology | DX: N83.209 Unspecified ovarian cyst, unspecified side (principal); D25.9 Leiomyoma of uterus, unspecified | CPT/HCPCS: 99212 ==

== ENCOUNTER → 2025-05-19 12:00 | Outpatient (BNV) | payer MEDICARE, MEDICAID, SELFPAY | PROVIDERS: PCP Nurse Practitioner Family; Visit Provider Internal Medicine | DX: N63.21 Unspecified lump in the left breast, upper outer quadrant (principal) | CPT/HCPCS: 76642; 77066; G0279 ==

== ENCOUNTER 2025-05-19 12:12 | Outpatient (REF) | payer MEDICARE, MEDICAID, SELFPAY ==
--- NOTE | ~2025-05-19 | US_ITS ---
EXAMINATION: MM DIAGNOSTIC DIGITAL BREAST TOMOSYNTHESIS, BILATERAL Limited left breast ultrasound. CLINICAL INFORMATION: Left breast palpable lump at 1:00 felt by the patient's physician. COMPARISON: Mammography: Comparison is made with relevant prior exams. TECHNIQUE: Digital breast mammography with tomosynthesis is performed in both the craniocaudal and mediolateral oblique views along with computer-aided detection (CAD). FINDINGS: There are scattered areas of fibroglandular density (ACR BI-RADS breast composition Category b). BB marker in the upper outer left breast without underlying abnormality at the site of patient's palpable lump. Right marker clip from benign needle core biopsy. There are no significant masses, abnormal calcifications, or other abnormalities. Targeted color Doppler ultrasound scanning in the area of the left breast palpable lump upper outer quadrant demonstrates normal fibroglandular breast tissue. There is no sonographic abnormal finding. Results are provided to the patient at time of visit by the technologist. US/US breast LT limited mamm only IMPRESSION: No mammographic or sonographic abnormal finding to account for the patients left palpable lump. Recommend clinical evaluation and followup. ASSESSMENT: BI-RADS BI-RADS 1 - Negative RECOMMENDATION: 1 year F/U This patient's information was entered into a reminder system with a target due date for their next mammogram. Electronically signed by: Lindsey Blanca DO 05/21/2025 11:30 AM EDT
--- OUTSIDE RECORDS SUMMARY | 2025-05-19 13:37 | XMS_ITS | Patient Health Record ---
Author Organization [facility] Address [address] [place] [address] Care Team Providers Care General Milling Superintendent Name Role Phone Silas MORALEZ, Joana Primary Care Provider Collin Craven Jr Unavailable JAMISON CLAY Unavailable Unavailable Allergies Allergen (clinical drug ingredient) Drug/Non Drug Allergy documented on EMR Reaction Allergy Type Onset Date Status Sulfa Unknown Drug Allergy Active tetracycline Tetracycline HCl Unknown Drug Allergy Active Reason For Referral No Information Medications Medication SIG (Take, Route, Fr equency, Duration) Notes Start Date End Date Status Xanax Active Flexeril Active Prempro Active Zoloft 50mg Active oxyCODONE HCl 30mg A ctive Levothyroxine Sodium 11/27/2024 11/27/99 Active Golytely 236 GM as directed before colonoscopy Orally every 15 minutes for 1 day(s) 03/11/2013 11/27/2024 Active fentaNYL Active Problems Problem Type SNOMED Code ICD Code Onset Dates Problem Status W/U Status Risk Notes Problem Constipation (06414374) Constipation (564.00) Active confirmed Problem Colon cancer screening (444450156) Colon cancer screening (V76.51) Active confirmed Plan Of Treatment Future Test Test Name Order Date COLONOSCOPY 03/11/2013 Insurance Providers Payer Name Payer Address Payer Phone Subscriber Number Group Number Insured Name Patient Relationship to Insured Coverage Start Date Coverage End Date [place] OF [place] [address] [place] [id number] IRAJ ROMANO Self - patient is the insured MEDICAID OF [facility] [address] [place] [address] [id number] IRAJ ROMANO Self - patient is the insured Medical (General) History Medical History History ICD Code Denies MO,DM,CVA,Lung disease,renal dise ase Surgical History Surgery Date(Month/Year) section X3 back surgery X2
== END 2025-05-19 12:13 | disposition home or self-care (01) ==
LOC: HO.MAMMO 12:12
PROVIDERS: PCP Nurse Practitioner Family; Visit Provider Obstetrics & Gynecology
DX: N63.21 Unspecified lump in the left breast, upper outer quadrant (principal)
CPT/HCPCS: 76642; 77062; 77066

== ENCOUNTER 2025-06-30 11:40 | Outpatient (AMB) | payer MEDICARE, MEDICAID, SELFPAY ==
[2025-06-30 11:41] VITALS: BP 120/72; PULSE 68; RESP 18; TEMP 36.3; O2SAT 94; BMI 28.3
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
--- OUTSIDE RECORDS SUMMARY | 2025-06-30 12:27 | XMS_ITS | Patient Health Record ---
Author Organization [facility] Address [address] [place] [address] Care Team Providers Care Field Radio Operator Name Role Phone Silas MORALEZ, Joana Primary [...] Status W/U Status Risk Notes Problem Constipation (98214361) Constipation (564.00) Active confirmed Problem Colon cancer screening (V76.51) Active confirmed Plan Of Treatment Future Test Test Name Order Date COLONOSCOPY 03/11/2013 Insurance Providers Payer Name Payer Address Payer Phone Subscriber Number Group Number Insured Name Patient Relationship to Insured Coverage Start Date Coverage End Date MEDICARE OF [place] [address] [place] ROMO [id number] IRAJ ROMANO Self - patient is the insured MEDICAID OF [facility] [address] [place] [address] [id number] IRAJ ROMANO Self - patient is the insured Medical (General) History Medical History History ICD Code Denies [place],DM,CVA,Lung disease,renal dise ase Surgical History Surgery Date(Month/Year) section X3 back surgery X2
--- OUTSIDE RECORDS SUMMARY | 2025-06-30 12:28 | XMS_ITS | Patient Health Record ---
Author Organization [facility] Address [address] [place] [address] Care Team Providers Care Pumping Station Supervisor Name Role Phone Silas CHANNEL MANAGER, Joana Primary Care Provider Unava page SHIRA RODRIGUEZA Unavailable [phone] Reason For Referral No Information Problems Problem Type SNOMED Code ICD Code Onset Dates Problem Status W/U Status Risk Notes Problem Hypothyroidism (58500946) Hypothyroidism, unspecified (E03.9) Active confirmed Problem Recurrent major depression (60950006) Major depressive disorder, recurrent, unspecified (F33.9) Active confirmed Problem Migraine without aura, not refractory (disorder) (919014305) Migraine, unspecified, not intractable, without status migrainosus (G43.909) Active confirmed Plan Of Treatment Pending Test Test Name Order Date MM Digital Screening Mammogram 3D 2021 MM Digital Screening Mammogram 3D 2022 Insurance Providers Payer Name Payer Address Payer Phone Subscriber Number Group Number Insured Name Patient Relationship to Insured Coverage Start Date Coverage End Date MEDICARE [address] [place] [id number] IRAJ ROMANO Self - patient is the insured Medical (General) History Medical History History ICD Code Hypothyroidism, unspecified E03.9 Major depressive disorder, recurrent, un specified F33.9 Migraine, unspecified, not intractable, without status migrainosus G43.909 terminal operator (current) use of opiate analge sic Z79.891
== END 2025-06-30 12:54 | disposition home or self-care (01) ==
LOC: HO.HMCH 11:40
PROVIDERS: PCP Nurse Practitioner Family
DX: R13.12 Dysphagia, oropharyngeal phase (principal); S06.0XAD Concussion with loss of consciousness status unknown, subsequent encounter; G44.329 Chronic post-traumatic headache, not intractable; F41.9 Anxiety disorder, unspecified; F32.A Depression, unspecified; M54.50 Low back pain, unspecified; G89.29 Other chronic pain; N18.2 Chronic kidney disease, stage 2 (mild); E03.9 Hypothyroidism, unspecified

== ENCOUNTER → 2025-06-30 11:40 | Outpatient (BNVA) | payer MEDICARE, MEDICAID, SELFPAY | PROVIDERS: PCP Nurse Practitioner Family | DX: R13.12 Dysphagia, oropharyngeal phase (principal); S06.0XAD Concussion with loss of consciousness status unknown, subsequent encounter; G44.329 Chronic post-traumatic headache, not intractable; F41.9 Anxiety disorder, unspecified; F32.A Depression, unspecified; M54.50 Low back pain, unspecified; G89.29 Other chronic pain; N18.2 Chronic kidney disease, stage 2 (mild); E03.9 Hypothyroidism, unspecified | CPT/HCPCS: 96127; 99202 ==

== ENCOUNTER 2025-10-21 15:03 | Outpatient (AMB) | payer MEDICARE, MEDICAID, SELFPAY ==
[2025-10-21 15:19] VITALS: BP 92/60; PULSE 70; RESP 18; O2SAT 95; BMI 27.3
--- NOTE | 2025-10-21 15:19 | A.OFFPC_ITS ---
Vital Signs 10/21/25 15:19 Height 5 ft 4 in Blood Pressure Location Lt brachial Position Sitting Respiration 18 Pulse Source Pulse Oximeter Temp Source Temporal Artery Scan Oxygen Delivery Method Room Air Intake Visit Reasons: annual physical/lab review, resched Yard Coordinator Required: No Accompanied by: Self / Same As Patient Allergies minocycline Allergy (Unknown, Verified 10/21/25 15:21) Unknown Sulfa (Sulfonamide Antibiotics) (SULFA (SULFONAMIDE ANTIBIOTICS)) Allergy (Unknown, Verified 10/21/25 15:21) RASH tetracycline (TETRACYCLINE) Allergy (Unknown, Verified 10/21/25 15:21) PANCREATITIS Tobacco use date assessed: 10/21/25 Dental Screening Dental Screen Date: 10/21/25 [facility] Medical History Accidental overdose History of chronic pain Rupture of flexor tendon of left hand Well woman exam Hypothyroidism Surgical History H/O wrist surgery History of back surgery Hx of section H/O foot surgery Family History Other No family history of coronary artery disease Social History Household Members: Friend(s) Housing: House Alcohol intake: current Alcohol intake frequency: a few times a week Patient Tobacco Use Status: Never used Tobacco e-Cigarette/Vaping Use: Never Used service: No Current occupational status: disabled Current occupation: rt hand Cognitive needs: No Hearing needs: No Vision needs: No Female Reproductive History Menstrual Age of Menarche: 13 Questionnaire Thrive Questionnaire Date Thrive assessed: 06/30/25 I am a: Patient What is your living situation today?: I have a steady place to live Within the past 12 months, did the food you bought not last and you didn't have the money to get more?: Never true Within the past 12 months, did you worry whether your food would run out before you got money to buy more?: Never true Do you have trouble paying for medicines?: No Do you have trouble getting transportation to medical appointments?: No Do you have trouble paying your heating and electricity bill?: Yes Do you have trouble taking care of your child, family member or friend?: No Do you have trouble with day-to-day activities such as bathing, preparing meals, shopping, managing finances, etc.?: Yes Are you currently unemployed and looking for a job?: Yes (disability) Are you interested in more education?: No THRIVE Score: 1 AUDIT C Alcohol Use Questionnaire (AUDIT-C) 1. How often do you have a drink containing alcohol?: Never 3. How often do you have six or more drinks on one occasion?: Never Total Score: 0 TREVER-7 AMB Questionnaire TREVRE-7 Date TREVER - 7 assessed: 06/30/25 Feeling nervous, anxious, or on edge: 3 = Nearly every day Not being able to stop or control worryin = Nearly every day Worrying too much about different things: 3 = Nearly every day Trouble relaxin = Nearly every day Being so restless that it is hard to sit still: 3 = Nearly every day Becoming easily annoyed or irritable: 3 = Nearly every day Feeling afraid as if something awful might happen: 0 = Not at all Total TREVER-7 score (0-4 normal; 5-9 mild; 10-14 moderate; 15-21 severe): 18 Source: Developed by Drs. Armando Kauffman, Rosibel Mazariegos, Chuck Agee and colleagues, with an educational danuta from [employer]. TREVER-7 Assessment Billing TREVER-7 Assessment Tool: TREVER-7 Assessment 38552 Physical exam (Primary Care) Tobacco/Smoking Status: Tobacco use Status Tobacco use date assessed 06/30/25 06/30/25 11:42 Patient Tobacco Use Status Never used Tobacco 06/30/25 11:42 e-Cigarette/Vaping Use Never Used 06/30/25 12:02 Thrive Assessment: Date of Thrive Assessment Date Thrive assessed 06/30/25 06/30/25 11:42 Coding Additional Codes TREVER-7 Assessment Billing - TREVER-7 Assessment Tool: TREVER-7 Assessment 79449 ([id number])
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
--- OUTSIDE RECORDS SUMMARY | 2025-10-21 18:46 | XMS_ITS | Patient Health Record ---
Author Organization [employer] [facility] Address [address] [place] [address] Care Team Providers Care Human Resources Generalist Name Role Phone Silas PRODUCTION METAL SPRAYER, Joana Primary Care Provider Unava page SHIRA RODRIGUEZA Unavailable [phone] Reason For Referral No Information Problems Problem Type SNOMED Code ICD Code Onset Dates Problem Status W/U Status Risk Notes Problem Hypothyroidism (66790546) Hypothyroidism, unspecified (E03.9) Active confirmed Problem Recurrent major depression (60994474) Major depressive disorder, recurrent, unspecified (F33.9) Active confirmed Problem Migraine without aura, not refractory (disorder) (228277359) Migraine, unspecified, not intractable, without status migrainosus (G43.909) Active confirmed Plan Of Treatment Pending Test Test Name Order Date MM Digital Screening Mammogram 3D 2021 MM Digital Screening Mammogram 3D 2022 Insurance Providers Payer Name Payer Address Payer Phone Subscriber Number Group Number Insured Name Patient Relationship to Insured Coverage Start Date Coverage End Date MEDICARE [address] [place] [id number] [id number] Self - patient is the insured Medical (General) History Medical History History ICD Code Hypothyroidism, unspecified E03.9 Major depressive disorder, recurrent, un specified F33.9 Migraine, unspecified, not intractable, without status migrainosus G43.909 detention (current) use of opiate analge sic Z79.891
--- OUTSIDE RECORDS SUMMARY | 2025-10-21 18:46 | XMS_ITS | Patient Health Record ---
Author Organization [facility] Address [address] [place] [id number] Care Team Providers Care Relish Maker Name Role Phone Silas MORALEZ, Joana Primary Care Provider Collin Craven Jr Unavailable [phone] JAMISON CLAY Unavailable Unavailable Allergies Allergen (clinical drug ingredient) Drug/Non Drug Allergy documented on EMR Reaction Allergy Type Onset Date Status tetracycline Tetracycline HCl Unknown Drug Allergy Active Sulfa Unknown Drug Allergy Active Reason For Referral No Information Medications Medication SIG (Take, Route, Frequency, Duration) Notes Start Date End Date Status Xanax Active Flexeril Active Prempro Active Zoloft 50mg Active oxyCODONE HCl 30mg A ctive Levothyroxine Sodium 11/27/18 Active Golytely 236 GM Solution Reconstituted as directed before colonoscopy Orally every 15 minutes; Duration: 1 day(s) 03/11/2013 Active fentaNYL Active Social History Social History Additional Details Category Social Info Options Details Miscellaneous: Marital status: Occupation: unemployed Problems Problem Type SNOMED Code ICD Code Onset Dates Problem Status W/U Status Risk Notes Problem Constipation (86209497) Constipation (564.00) Active confirmed Problem Colon cancer screening (888639624) Colon cancer screening (V76.51) Active confirmed Plan Of Treatment Future Test Test Name Order Date COLONOSCOPY 03/11/2013 Insurance Providers Payer Name Payer Address Payer Phone Subscriber Number Group Number Insured Name Patient Relationship to Insured Coverage Start Date Coverage End Date [place] [address] [place] [id number] JUAN ANTONIOIRAJ Mcclure Self - patient is the insured MEDICAID OF [facility] [address] [place] [phone] [id number] IRAJ ROMANO Self - patient is the insured Medical (General) History Medical History History ICD Code Denies RI,DM,CVA,Lung disease,renal dise ase Surgical History Surgery Date(Month/Year) section X3 back surgery X2
== END 2025-10-21 16:44 | disposition home or self-care (01) ==
PROVIDERS: PCP Nurse Practitioner Family
DX: Z00.00 Encounter for general adult medical examination without abnormal findings (principal); R13.12 Dysphagia, oropharyngeal phase; S06.0XAD Concussion with loss of consciousness status unknown, subsequent encounter; F11.10 Opioid abuse, uncomplicated; G44.329 Chronic post-traumatic headache, not intractable; F41.9 Anxiety disorder, unspecified; F32.A Depression, unspecified; M54.50 Low back pain, unspecified; G89.29 Other chronic pain; N18.2 Chronic kidney disease, stage 2 (mild); E03.9 Hypothyroidism, unspecified

== ENCOUNTER → 2025-10-21 15:03 | Outpatient (BNVA) | payer MEDICARE, MEDICAID, SELFPAY | PROVIDERS: PCP Nurse Practitioner Family | DX: Z13.31 Encounter for screening for depression (principal) | CPT/HCPCS: 96127 ==